=== PATIENT | male | born 1965 | race Caucasian/White ===

== ENCOUNTER 2020-09-06 19:24 | Emergency (ER) | payer OTHER ==
[2020-09-06 20:22] LABS: Absolute Lymphocytes (CBC) 0.4 K/uL (0.7-4.9); Basophils % 0.2 % (0-1.3); Lymphocytes % 2.4 % (15.3-44.8); MPV 7.7 fL (7.6-11.3); RBC Red Blood Cell Count 4.34 M/uL (4.33-5.43)
[2020-09-06 20:23] LABS: Protime INR 1.35
[2020-09-06 20:29] LABS: ALT/SGPT 79 U/L (12-78); AST/SGOT 37 U/L (15-37); Albumin 2.7 g/dL (3.4-5.0); Alkaline Phosphatase 126 U/L (45-117); Amylase 20 U/L (25-115); BUN Blood Urea Nitrogen 24 mg/dL (7-18); Bicarbonate 27 mmol/L (21-32); Bilirubin Direct 1.1 mg/dL (0-0.2); Bilirubin Total 1.7 mg/dL (0.2-1.0); Creatine Phosphokinase 19 U/L (39-308); Glucose Level 281 mg/dL (74-106); Lipase 159 U/L (73-393); Potassium 4.4 mmol/L (3.5-5.1); Protein, Total 7.2 g/dL (6.4-8.2); Sodium Level 128 mmol/L (136-145); Troponin (Emerg Dept Use Only) < 0.02 ng/mL (0.0-0.045)
[2020-09-06] MEDS ORDERED: ONDANSETRON 4 MG/2 ML VIAL ONE (20:35)
[2020-09-06] MEDS ORDERED: ACETAMINOPHEN 500 MG TAB ONE (20:35)
[2020-09-06] MEDS ORDERED: NA CHLORIDE 0.9% 2,000 ML ONE (20:36)
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
[2020-09-06 21:48] LABS: Blood Morphology Comment NOT SEEN (NOT SEEN); Platelet Estimate ADEQ
--- NOTE | 2020-09-06 23:38 | ER ---
Nurse's Notes [facility] Name: Damir Morgan Age: 55 yrs Sex: Male : 1965 Arrival Date: 09/06/2020 Time: 19:26 Bed 6 Private MD: Diagnosis: Fever, unspecified;Nausea and vomiting;Dehydration;Viral infection, unspecified Presentation: 09/06 19:26 Chief complaint: EMS states: patient has complaining of N/V/D, fever, and generalized jm8 weakness x 3 days. Worse today. BG 420. 92% room air with EMS. Coronavirus screen: Client denies travel out of the [place] in the last 14 days. diarrhea, fatigue, fever, muscle pain, nausea, shaking with chills, vomiting. Ebola Screen: Patient negative for fever greater than or equal to 101.5 degrees Fahrenheit, and additional compatible Ebola Virus Disease symptoms Patient denies exposure to infectious person. Patient denies travel to an Ebola-affected area in the 21 days before illness onset. Initial Sepsis Screen: Does the patient meet any 2 criteria? Temp <36.0*C (96.8*F)) or > 38.3*C (100.9*F). HR > 90 bpm. Yes Does the patient have a suspected source of infection? No. Patient's initial sepsis screen is negative. Risk Assessment: Do you want to hurt yourself or someone else? Patient reports no desire to harm self or others. Onset of symptoms was September 03, 2020. 19:26 Method Of Arrival: [facility]: [facility] 19:26 Acuity: MORELIA [address] [facility] 19:37 Care prior to arrival: Medication(s) given: zofran 4 mg, lactated ringers IV initiated. jm8 18 GA, in the right antecubital area. Historical: - Allergies: 19:36 No Known Allergies; jm8 - Home Meds: 19:36 insulin regular human injection sliding scale injection [Active]; jm8 - PMHx: 19:36 Diabetes - IDDM; jm8 - PSHx: 19:36 None; jm8 - Immunization history:: Adult Immunizations up to date, Client reports having NOT received the Covid vaccine. - Social history:: Smoking status: Patient denies any tobacco usage or history of. Screenin:36 Abuse screen: Denies threats or abuse. Denies injuries from another. Nutritional jm8 screening: No deficits noted. Tuberculosis screening: No symptoms or risk factors identified. Fall Risk None identified. Assessment: 20:23 General: Appears in no apparent distress. comfortable, Behavior is calm, cooperative, jm8 appropriate for age. Pain: Complains of pain in abdomen Pain currently is 5 out of 10 on a pain scale. Quality of pain is described as crampy, Pain began 2-3 days ago. Also complains of nausea. Neuro: No deficits noted. Level of Consciousness is awake, alert, obeys commands, Oriented to person, place, time. Cardiovascular: No deficits noted. Respiratory: No deficits noted. GI: Abdomen is round Pt is actively vomiting Bowel sounds present X 4 quads. Abd is soft and non tender Reports lower abdominal pain, upper abdominal pain, diarrhea, nausea, vomiting, generalized weakness. : No deficits noted. No signs and/or symptoms were reported regarding the genitourinary system. EENT: No deficits noted. No signs and/or symptoms were reported regarding the EENT system. Derm: No deficits noted. No signs and/or symptoms reported regarding the dermatologic system. Musculoskeletal: No deficits noted. No signs and/or symptoms reported regarding the musculoskeletal system. 09/07 11:17 Reassessment: Lab called with preliminary blood culture report. Gram + cocci in ss clusters. Dr. Ramon notified and states to call patient back to ER. Attempted to call number on file. No answer. Vital Signs: 09/06 19:26 BP 135 / 79; Pulse 109; Resp 20; Temp 100.7; Pulse Ox 96% on R/A; Weight 77.11 kg; jm8 Height 5 ft. 6 in. (167.64 cm); Pain 5/10; 21:46 BP 134 / 72; Pulse 103; Resp 16; Pulse Ox 95% on R/A; jm8 22:34 BP 111 / 68; Pulse 100; Resp 16; Temp 98.9; Pulse Ox 95% on R/A; jm8 23:15 BP 103 / 56; Pulse 98; Resp 16; Pulse Ox 95% on R/A; jm8 19:26 Body Mass Index 27.44 (77.11 kg, 167.64 cm) [facility] ED Course: 19:26 Patient arrived in ED. 8 19:29 Gilbert Hagen MD is Attending Physician. tw4 19:32 Triage completed. jm8 20:02 Chest Single View XRAY In Process Unspecified. EDMS 20:24 Arm band placed on right wrist. jm8 20:25 Patient has correct armband on for positive identification. Bed in low position. Call carey light in reach. Side rails up X2. Adult w/ patient. 20:26 Inserted saline lock: 18 gauge in right antecubital area, using aseptic technique. jm8 23:46 No provider procedures requiring assistance completed. IV discontinued, intact, jm8 bleeding controlled. Administered Medications: 20:21 Drug: Tylenol 1000 mg Route: PO; jm8 21:45 Follow up: Response: No adverse reaction jm8 20:22 Drug: NS 0.9% (30 ml/kg) 30 ml/kg Route: IV; Rate: bolus; Site: right antecubital; jm8 20:22 Drug: Zofran (Ondansetron) 4 mg Route: IVP; Site: left antecubital; jm8 21:45 Follow up: Response: No adverse reaction [facility] Outcome: 23:37 Discharge ordered by . tw4 23:46 Discharged to home ambulatory. jm8 23:46 Condition: good 23:46 Discharge instructions given to patient, family, Instructed on discharge instructions, follow up and referral plans. medication usage, Demonstrated understanding of instructions, follow-up care, medications, Prescriptions given X 1. 23:47 Patient left the ED. jm8 Signatures: Dispatcher [employer] EDFL Maria Ines Cornelius, SONDRA AMARO Gilbert Hagen MD MD [facility] Jeremy Geiger RN RN jm
--- NOTE | 2020-09-06 23:39 | EDPHYS ---
Physician Documentation [facility] Name: Damir Morgan Age: 55 yrs Sex: Male : 1965 Arrival Date: 09/06/2020 Time: 19:26 Bed 6 Private MD: ED Physician Gilbert Hagen HPI: 09/07 05:00 This 55 yrs old Male presents to ER via EMS with complaints of nausea tw4 vomiting. 05:00 The patient presents to the emergency department with nausea, vomiting. Onset: The tw4 symptoms/episode began/occurred today. Possible causes: unknown. Severity of symptoms: At their worst the symptoms were moderate in the emergency department the symptoms are unchanged. The patient has not experienced similar symptoms in the past. Historical: - Allergies: 09/06 19:36 No Known Allergies; jm8 - Home Meds: 19:36 insulin regular human injection sliding scale injection [Active]; 8 - PMHx: 19:36 Diabetes - IDDM; 8 - PSHx: 19:36 None; jm8 - Immunization history:: Adult Immunizations up to date, Client reports having NOT received the Covid vaccine. - Social history:: Smoking status: Patient denies any tobacco usage or history of. ROS: 09/07 05:00 Constitutional: Negative for fever, chills, and weight loss, Eyes: Negative for injury, tw4 pain, redness, and discharge, Neck: Negative for injury, pain, and swelling, Respiratory: Negative for shortness of breath, cough, wheezing, and pleuritic chest pain, Back: Negative for injury and pain, MS/Extremity: Negative for injury and deformity, Skin: Negative for injury, rash, and discoloration, Neuro: Negative for headache, weakness, numbness, tingling, and seizure. Abdomen/GI: Positive for abdominal pain, nausea and vomiting, nausea, vomiting, Negative for nausea, vomiting, and diarrhea, diarrhea, constipation, abdominal cramps, abdominal distension, anorexia, dysphagia, black/tarry stool, rectal pain, rectal bleeding, bowel incontinence. Exam: 05:00 Constitutional: This is a well developed, well nourished patient who is awake, alert, tw4 and in no acute distress. Head/Face: Normocephalic, atraumatic. Chest/axilla: Normal chest wall appearance and motion. Nontender with no deformity. No lesions are appreciated. Cardiovascular: Regular rate and rhythm with a normal S1 and S2. No gallops, murmurs, or rubs. Normal PMI, no JVD. No pulse deficits. Respiratory: Lungs have equal breath sounds bilaterally, clear to auscultation and percussion. No rales, rhonchi or wheezes noted. No increased work of breathing, no retractions or nasal flaring. Abdomen/GI: Soft, non-tender, with normal bowel sounds. No distension or tympany. No guarding or rebound. No evidence of tenderness throughout. Back: No spinal tenderness. No costovertebral tenderness. Full range of motion. MS/ Extremity: Pulses equal, no cyanosis. Neurovascular intact. Full, normal range of motion. Neuro: Awake and alert, GCS 15, oriented to person, place, time, and situation. Cranial nerves II-XII grossly intact. Motor strength 5/5 in all extremities. Sensory grossly intact. Cerebellar exam normal. Normal gait. Vital Signs: 09/06 19:26 BP 135 / 79; Pulse 109; Resp 20; Temp 100.7; Pulse Ox 96% on R/A; Weight 77.11 kg; 8 Height 5 ft. 6 in. (167.64 cm); Pain 5/10; 21:46 BP 134 / 72; Pulse 103; Resp 16; Pulse Ox 95% on R/A; 8 22:34 BP 111 / 68; Pulse 100; Resp 16; Temp 98.9; Pulse Ox 95% on R/A; 8 23:15 BP 103 / 56; Pulse 98; Resp 16; Pulse Ox 95% on R/A; 8 19:26 Body Mass Index 27.44 (77.11 kg, 167.64 cm) [facility] MDM: 19:49 Patient medically screened. tw4 09/07 05:00 Differential diagnosis: Nonspecific abd pain, gastritis. Data reviewed: vital signs, tw4 nurses notes. Data interpreted: Pulse oximetry: Interpretation: normal. Counseling: I had a detailed discussion with the patient and/or guardian regarding: the historical points, exam findings, and any diagnostic results supporting the discharge/admit diagnosis. Special discussion: I discussed with the patient/guardian in detail that at this point there is no indication for admission to the hospital. It is understood, however, that if the symptoms persist or worsen the patient needs to return immediately for re-evaluation. 09/06 19:30 Order name: Amylase, Serum 09/06 19:30 Order name: Basic Metabolic Panel 09/06 19:30 Order name: Blood Culture Adult (2) 09/06 19:30 Order name: CBC with Diff; Complete Time: 22:57 09/06 22:57 Interpretation: Normal except: WBC 15.50; HCT 39.0; LYM% 2.4; KEITH% 91.1; NEUT A 14.1; tw4 LYMA 0.4. 09/06 19:30 Order name: CPK; Complete Time: 21:35 09/06 22:58 Interpretation: Normal except: CPK 19. 09/06 19:30 Order name: LFT's; Complete Time: 21:35 09/06 22:58 Interpretation: Normal except: ALT 79; ALK 126; BILIT 1.7; BILID 1.1; ALB 2.7; GLOB 4.5.09/06 19:30 Order name: Lipase; Complete Time: 21:35 09/06 19:30 Order name: Procalcitonin; Complete Time: 21:35 09/06 22:58 Interpretation: Abnormal: Procalcitonin 6.54. 09/06 19:30 Order name: Protime (+inr); Complete Time: 21:35 09/06 22:58 Interpretation: Normal except: PT 15.6. 09/06 19:30 Order name: Ptt, Activated; Complete Time: 21:35 09/06 19:30 Order name: Troponin (emerg Dept Use Only); Complete Time: 21:35 09/06 19:30 Order name: Acetone, Serum; Complete Time: 21:35 09/06 19:30 Order name: Chest Single View XRAY; Complete Time: 21:16 09/06 19:30 Order name: Accucheck; Complete Time: 20:49 09/06 19:30 Order name: Cardiac monitoring; Complete Time: 19:56 09/06 19:30 Order name: EKG - Nurse/Tech; Complete Time: 20:49 09/06 19:30 Order name: IV Saline Lock - Large Bore; Complete Time: 19:56 tw4 09/06 19:30 Order name: Labs collected and sent; Complete Time: 19:56 tw4 09/06 19:30 Order name: O2 Per Protocol; Complete Time: 19:56 tw4 09/06 19:30 Order name: O2 Sat Monitoring; Complete Time: 19:56 tw4 09/06 19:30 Order name: Amylase; Complete Time: 21:35 EDMS 09/06 19:31 Order name: Basic Metabolic Panel; Complete Time: 21:35 EDMS 09/06 22:58 Interpretation: Normal except: NA 128; CL 92; GLUC 281; BUN 24; GFR 89. tw4 09/06 20:23 Order name: Manual Differential; Complete Time: 22:57 EDMS 09/06 22:57 Interpretation: Normal except: BANDS [F] 17; LYM 1; META 1. 4 09/06 22:55 Order name: SARS-COV-2 RT PCR; Complete Time: 23:18 EDMS EC:09 Rate is 111 beats/min. Rhythm is regular. QRS [place] is Normal. FL interval is normal. tw4 QRS interval is normal. QT interval is normal. No Q waves. T waves are Normal. No ST changes noted. Clinical impression: Sinus tachycardia. Interpreted by me. Reviewed by me. Administered Medications: 09/06 20:21 Drug: Tylenol 1000 mg Route: PO; jm8 21:45 Follow up: Response: No adverse reaction [facility] 20:22 Drug: NS 0.9% (30 ml/kg) 30 ml/kg Route: IV; Rate: bolus; Site: right antecubital; [facility] 20:22 Drug: Zofran (Ondansetron) 4 mg Route: IVP; Site: left antecubital; 8 21:45 Follow up: Response: No adverse reaction [facility] Disposition: 09/06/20 23:37 Discharged to Home. Impression: Fever, unspecified, Nausea and vomiting, Dehydration, Viral infection, unspecified. - Condition is Stable. - Discharge Instructions: Dehydration, Adult, Fever, Adult, Nausea and Vomiting, Adult, Hyponatremia, [id number]. - Prescriptions for Zofran 4 mg Oral Tablet - take 1 tablet by ORAL route every 12 hours As needed; 20 tablet. - Medication Reconciliation Form, Thank You Letter, Antibiotic Education, Prescription Opioid Use form. - Follow up: Private Physician; When: Upon discharge from the Emergency Department; Reason: Recheck today's complaints, Continuance of care, Re-evaluation by your physician. - Problem is new. - Symptoms have improved. Signatures: Dispatcher [employer] [facility] Gilbert Hagen MD MD tw4 Jeremy Geiger RN RN jm8 Corrections: (The following items were deleted from the chart) 22:04 21:37 CORONAVIRUS+MR.LAB.BRZ ordered. [facility] 23:47 23:37 09/06/2020 23:37 Discharged to Home. Impression: Fever, unspecified; Nausea and jm8 vomiting; Dehydration; Viral infection, unspecified. Condition is Stable. Forms are Medication Reconciliation Form, Thank You Letter, Antibiotic Education, Prescription Opioid Use. Follow up: Private Physician; When: Upon discharge from the Emergency Department; Reason: Recheck today's complaints, Continuance of care, Re-evaluation by your physician. Problem is new. Symptoms have improved. tw4
[2020-09-06 23:59] VITALS: O2SAT 95
[2020-09-07 00:01] VITALS: TEMP 98.9
[2020-09-07 00:02] VITALS: BP 103/56
--- NOTE | 2020-09-07 10:27 | EKG ---
Test Date: 2020-09-06 Test Time: 20:43:44 Information Technology Architect: AVA MEASUREMENT RESULTS: Intervals: Rate: 111 OH: 140 QRSD: 82 QT: 330 QTc: 448 [place]: P: 70 OH: 140 QRS: 46 T: 55 INTERPRETIVE STATEMENTS: Sinus tachycardia Otherwise normal ECG No previous ECG available for comparison Electronically Signed On 09-07-20 10:25:38 CDT by Chun Lopez
== END 2020-09-06 23:47 | disposition home or self-care (01) ==
LOC: ER 19:24
DX: B34.9 Viral infection, unspecified (principal); E86.0 Dehydration; R11.2 Nausea with vomiting, unspecified; Z20.822 Contact with and (suspected) exposure to COVID-19; E11.9 Type 2 diabetes mellitus without complications; Z79.4 Long term (current) use of insulin
CPT/HCPCS: 93005; 87040 ×2; 85025; 80048; 36415; 82010; 82150; 82550; 87205 ×4; 85610; 80076; 85730; 84484; 83690; 84145; 71045; U0003; J2405; 99284; J7030

== ENCOUNTER 2020-09-11 14:40 | Inpatient (IN) | payer BC, SELFPAY ==
[2020-09-11] MEDS ORDERED: ACETAMINOPHEN 500 MG TAB PO PRN (14:51)
[2020-09-11] MEDS ORDERED: VANCOMYCIN/NS 1 gm 1 GM/250 ML BAG IVPB SCH (15:00)
--- OUTSIDE RECORDS SUMMARY | 2020-09-11 16:08 | XMS REPORT | Continuity of Care Document ---
:1965 Author Organization [facility] t Address [address] [place] [address] Care Team Providers Name Role Phone Rafael ROBLES Attending Clinician Doctor Unassigned, Name Attending Clinician Unavailable Problems This patient has no known problems. Allergies, Adverse Reactions, Alerts This patient has no known allergies or adverse reactions. Social History Social Habit Start Date Stop Date Quantity Comments Source Sex Assigned At [facility] Medications Ordered Filled Start Stop Current Ordering Indication Dosage Frequency Signature Comments Components Source Medication Medication Date Date Medication? Clinician (SIG) Name Name insulin 2018-0 Yes Hyperglycem 35 units Andrew 70/30 NPH - 4-05 ia BID Health REGULAR 100 00:00: subcutaneo unit/mL 00 us. injection INSULIN 0 Yes Hyperglycem Q.5D Use to H arris SYRINGE 1mL 4-05 ia inject Health 30GX5/16" 00:00: medication syringe-nee 00 2 times dle daily. Use a new syringe each time. Procedures This patient has no known procedures. Plan of Care Planned Activity Planned Date Details Comments Source Future Scheduled Test 2020-12-24 00:00:00 IMM Influenza [facility] Seasonal Dec to May (>/= 19 yrs) [code = IMM Influenza Seasonal Dec to May (>/= 19 yrs)] Future Scheduled Test 2013-08-27 00:00:00 Screening for [facility] malignant neoplasm of colon (procedure) [code = 342997231] Future Scheduled Test 1975 00:00:00 COVID-19 Vaccine (1) [facility] [code = COVID-19 Vaccine (1)] Encounters Start End Encounter Admission Attending Care Care Encounter Source Date/Time Date/Time Type Type Clinicians Facility Department ID 2019-10-06 2019-10-06 Office [facility] [id number] 15:19:25 16:01:42 Visit Luis Johns [id number] Robert [id number] Corina [id number] [address] 2019-10-06 2019-10-06 Orders Doctor NOHEMY [id number] 00:00:00 00:00:00 Only Unassigned, [place] [id number] [place] [facility] [id number] 2018-06-29 2018-06-29 Emergency [facility] [id number] Andrae 07:30:53 07:30:53 Health 2018-06-28 2018-06-28 Emergency [facility] [id number] Andrae 01:52:46 01:52:46 Health Results This patient has no known results.
[2020-09-11] MEDS ORDERED: VANCOMYCIN 1.5 GM in NA CHLORIDE 0.9% 500 ML IVPB SCH (17:00)
[2020-09-11] MEDS: MORPHINE 4 MG/ML SYR IV PRN ×2 (17:08→21:37)
[2020-09-11] MEDS: Levofloxacin 750mg IV 750 MG/150 ML BAG IV SCH (17:09)
[2020-09-11] MEDS: NA CHLORIDE 0.9% 1,000 ML IV SCH (17:09)
[2020-09-11] MEDS ORDERED: D50W 25 GM/50 ML SYRINGE IV PRN (22:17)
[2020-09-11] MEDS ORDERED: GLUCAGON 1 MG/VIAL IM PRN (22:17)
[2020-09-11] MEDS: INSULIN -REGULAR HUMAN 50 UNIT/0.5 ML ML SQ SCH (22:39)
[2020-09-11 23:09] LABS: Absolute Lymphocytes (CBC) 1.5 K/uL (0.7-4.9); Basophils % 0.3 % (0-1.3); Hematocrit 32.6 % (39.6-49.0); Lymphocytes % 8.7 % (15.3-44.8); RBC Red Blood Cell Count 3.58 M/uL (4.33-5.43)
[2020-09-11 23:23] LABS: Protime INR 1.37
[2020-09-11 23:28] LABS: ALT/SGPT 64 U/L (12-78); AST/SGOT 67 U/L (15-37); Albumin 1.9 g/dL (3.4-5.0); Alkaline Phosphatase 307 U/L (45-117); BUN Blood Urea Nitrogen 19 mg/dL (7-18); Bicarbonate 23 mmol/L (21-32); Glucose Level 203 mg/dL (74-106); Potassium 3.8 mmol/L (3.5-5.1); Protein, Total 5.4 g/dL (6.4-8.2); Sodium Level 129 mmol/L (136-145)
[2020-09-12] LABS: Platelet Estimate ADEQ
[2020-09-12 00:01] LABS: Blood Morphology Comment NOT SEEN (NOT SEEN)
[2020-09-12] MEDS: VANCOMYCIN 1.5 GM in NA CHLORIDE 0.9% 500 ML IVPB SCH ×3 (00:55→21:35)
[2020-09-12] MEDS ORDERED: VANCOMYCIN 1 GM/VIAL ONE (00:59)
[2020-09-12] MEDS ORDERED: NA CHLORIDE 0.9% 500 ML ONE (01:00)
[2020-09-12] MEDS: MORPHINE 4 MG/ML SYR IV PRN ×5 (01:02→23:26)
[2020-09-12 04:37] LABS: Absolute Lymphocytes (CBC) 1.5 K/uL (0.7-4.9); Basophils % 0.5 % (0-1.3); Hematocrit 31.6 % (39.6-49.0); Lymphocytes % 8.5 % (15.3-44.8); MPV 7.8 fL (7.6-11.3); RBC Red Blood Cell Count 3.48 M/uL (4.33-5.43)
[2020-09-12 04:54] LABS: Protime INR 1.4
[2020-09-12 05:04] LABS: ALT/SGPT 63 U/L (12-78); AST/SGOT 64 U/L (15-37); Albumin 1.9 g/dL (3.4-5.0); Alkaline Phosphatase 299 U/L (45-117); BUN Blood Urea Nitrogen 19 mg/dL (7-18); Bicarbonate 23 mmol/L (21-32); Bilirubin Direct 1.3 mg/dL (0-0.2); Bilirubin Total 1.8 mg/dL (0.2-1.0); Glucose Level 173 mg/dL (74-106); Potassium 3.8 mmol/L (3.5-5.1); Protein, Total 5.7 g/dL (6.4-8.2); Sodium Level 129 mmol/L (136-145)
[2020-09-12] MEDS: NA CHLORIDE 0.9% 1,000 ML IV SCH ×2 (05:16→17:33)
[2020-09-12] MEDS: INSULIN -REGULAR HUMAN 50 UNIT/0.5 ML ML SQ SCH ×4 (07:30→21:00)
[2020-09-12] MEDS ORDERED: SUCCINYLCHOLINE 20 MG/ML (10 ML) IV ONE (09:25)
[2020-09-12] MEDS ORDERED: FENTANYL CITR 100 MCG/2 ML ONE (09:27)
[2020-09-12] MEDS ORDERED: propofoL 200 MG/20 ML VIAL IV ONE (09:27)
[2020-09-12] MEDS ORDERED: MIDAZOLAM HCL 2 MG/2 ML INJ ONE (09:27)
[2020-09-12] MEDS ORDERED: GENTAMICIN SULF 80 MG/2ML INJ ONE (09:30)
[2020-09-12] MEDS ORDERED: LIDOCAINE 1% W/EPI 1:100,000 MDV 20 ML VIAL ONE (09:30)
[2020-09-12] MEDS ORDERED: CEFAZOLIN SODIUM 1 GM/VIAL ONE (09:30)
[2020-09-12] MEDS ORDERED: NS 0.9% VIAL 10 ML ONE (09:31)
[2020-09-12] MEDS ORDERED: BACITRACIN 50000 UNIT VIAL ONE (09:31)
[2020-09-12] MEDS ORDERED: NA CHLORIDE 0.9% 1,000 ML ONE (09:49)
[2020-09-12] MEDS: SODIUM HYPOCHLORITE 0.5% 473 ML ONE (10:10)
--- NOTE | 2020-09-12 10:12 | P.OP ---
Preoperative diagnosis: Necrotizing infection of RIGHT great toe Postoperative diagnosis: Necrotizing infection of RIGHT great toe Primary procedure: Wide local debridement of RIGHT great toe and midfoot Secondary procedure: Pulse lavage with antibiotic solution Anesthesia: GETA + Local Estimated blood loss: <5cc Specimen: cultures and debridement tissue sent Findings: necrosis extended to tendons, to proximal midfoot Complications: None Transferred to: Recovery Room Condition: Good
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
--- NOTE | 2020-09-12 12:11 | OP ---
Date of Procedure: 09/12/2020 Surgeon: Ugo Keating MD, Brief History Of Present Illness: The patient is a 55-year-old male diabetes and hypertension, who was recently admitted to [facility] with an infection of the right great toe after ant bites. He had been transferred to [facility] for surgical debridement and had worsening signs of progressive soft tissue infection by imaging. I had a preoperative discussion with the patient regarding the risks, benefits, and options from a surgical standpoint. The patient reiterated the desire to save the toe at almost all costs short of a devascularized toe. He asked if I could get the infection reduced significantly enough to give his toe a chance of survival. As such, I explained that there was always a chance for toe and limb loss in an operation of this type with necrotizing soft tissue infection and I could not in good conscience leave an infection behind if I thought that this was a possibility. As such, I brought the patient to the operating room with the intention of debridement without amputation, but possible amputation at this time and indicated procedures. Preoperative Diagnosis: Necrotizing soft tissue infection of the right great toe extending to the mid foot. Postoperative Diagnosis: Necrotizing soft tissue infection of the right great toe extending to the mid foot. Procedures: 1. Wide local debridement of right great toe necrotic tissue extending to the mid foot along the first ray. 2. Pulse lavage with antibiotic solution. Anesthesia: General endotracheal plus local with 0.25% Marcaine. Estimated Blood Loss: Less than 5 mL. Specimen: Cultures and debridement tissue sent. Findings: 1. Necrosis on the dorsal aspect of the right great toe extending up to the mid foot along the first ray with some medial extension toward the second ray, but not involving obviously. 2. This was a necrotizing soft tissue infection extending up to the tendons of the hallux. It appeared to not involve the extensor hallucis longus or brevis based on the extension; however, all soft tissues superficial to this were obviously involved. Complications: None immediate. Disposition: The patient was transferred to recovery room in good condition. Procedure In Detail: After informed consent was obtained, the patient was brought to the operating room, prepped and draped in the usual sterile fashion after adequate anesthesia achieved. I injected the area with additional lidocaine for additional regional block. I then incised the area over the great toe extending progressively up to the mid foot to expose all necrotic tissue. At this point, necrotic tissue was sharply debrided using a combination of electrocautery as well as sharp dissection with a combination of a 15 blade knife as well as tenotomy scissors. When all necrotic skin was debrided, I extended the dissection down to the necrotic tissue along the dorsal aspect of the hallux. As I continued, I encountered additional soft, weepy, grayish fluid up to almost the mid foot. I got good bleeding viable tissue up to approximately the mid foot along the first ray and debrided all this tissue down to the tendons over the first hallux involving what appeared to be the extensor hallucis longus and brevis. At this point, I circumferentially removed all necrotic tissue. I performed a pulse lavage with triple antibiotic solution until all tissues were copiously cleansed and all necrotic tissue was debrided. At this point, the blood supply appeared to be adequate and there was no additional extension of the infection; however, the tendon was exposed at this point and there was not a joint capsule involvement grossly. After the pulse lavage was completed, the areas of tissues appeared quite clean at this point. I made a counter incision on the dorsal aspect of the foot just medial to the first ray for approximately 1 cm to ensure there was no plantar aspect extension of the infection and there was none at this point. The area was irrigated. Hemostasis was achieved easily with electrocautery and the wound was packed with quarter-inch iodoform packing on the plantar aspect. The dorsal wound was then dried at this point, inspected for proper hemostasis. No additional hemostatic maneuvers required and the wound was then packed with Dakin-soaked Kerlix and a sterile dressing and an Herman bandage placed on top. The patient tolerated the procedure well without evidence of complication and transferred to PACU in good condition. All counts were correct at the end of the case. TK/MODL Voice ID: [id number] Report ID: [id number] ALEN
[2020-09-12] MEDS: ONDANSETRON 4 MG/2 ML VIAL IV PRN (12:14)
--- NOTE | 2020-09-12 16:53 | RAD REPORT ---
EXAM DESCRIPTION: US - Lower Extremity Arterial Bilat - 09/12/2020 4:28 pm CLINICAL HISTORY: PAD; necrotic toe COMPARISON: None. TECHNIQUE: Doppler evaluation of the bilateral lower extremity arterial tree performed. Waveforms we re obtained along the length of each lower extremity. Visual inspection of the lower extremity arteri al tree performed. FINDINGS: No occlusion or focal flow restricting lesion identifiable. The bilateral common femoral, superficial femoral and popliteal arteries show triphasic waveform pattern. Triphasic waveform patter n seen in the left dorsalis pedis artery. Monophasic waveform patterns were seen in the left posterio r tibial artery and the right posterior tibial and dorsalis pedis arteries. No significant velocity v alue differentials. IMPRESSION: Below-knee mild to moderate peripheral arterial disease is evident, right greater than l eft. No occlusion or flow restricting lesion.
[2020-09-12] MEDS: Levofloxacin 750mg IV 750 MG/150 ML BAG IV SCH (17:31)
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
[2020-09-12] MEDS: ALBUMIN HUMAN 25% 50 ML IV SCH (19:29)
[2020-09-12] MEDS: FUROSEMIDE 20 MG/ 2ML VIAL IV SCH (19:30)
--- NOTE | 2020-09-12 22:29 | RAD REPORT ---
EXAM DESCRIPTION: CT - Chest Abdomen Pelvis W Cont - 09/12/2020 6:43 am CLINICAL HISTORY: The patient is 55 years old and is Male; Left flank mass TECHNIQUE: Axial computed tomography images of the chest, abdomen and pelvis with intravenous contra st. Sagittal and coronal reformatted images were created and reviewed. This CT exam was performed using one or more of the following dose reduction techniques: automated exposure control, adjustme nt of the mA and/or kV according to patient size, and/or use of iterative reconstruction technique. COMPARISON: No relevant prior studies available. FINDINGS: CHEST: Lungs: 3.1 x 3.0 cm mass in the left lower lobe. Pleural space: Small bilateral pleural effusions, right greater than left. No pneumothorax. Heart: Unremarkable. No cardiomegaly. No significant pericardial effusion. ABDOMEN: Liver: Unremarkable. No mass. Gallbladder and bile ducts: Unremarkable. No calcified stones. No ductal dilation. Pancreas: Unremarkable. No ductal dilation. No mass. Spleen: Unremarkable. No splenomegaly. Adrenals: Unremarkable. No mass. Kidneys and ureters: Unremarkable. No hydronephrosis. No solid mass. Stomach and bowel: Unremarkable. No obstruction. No mucosal thickening. PELVIS: Appendix: No findings to suggest acute appendicitis. Bladder: Unremarkable. No mass. Reproductive: Unremarkable as visualized. CHEST, ABDOMEN and PELVIS: Intraperitoneal space: Unremarkable. No significant fluid collection. No free air. Retroperitoneal space: Diffuse edema within the mesenteric and retroperitoneal fat. Bones/joints: Unremarkable. No acute fracture. No dislocation. Soft tissues: Diffuse subcutaneous soft tissue edema. Scattered punctate metallic densities within the subcutaneous soft tissues of the right hemit horax and adjacent to the right posterior liver. Gynecomastia. Subcutaneous emphysema in the left anterolateral abdominal wall which may be related to injec tion. Vasculature: Unremarkable. No aortic aneurysm. Lymph nodes: Unremarkable. No enlarged lymph nodes. IMPRESSION: 1. 3.1 x 3.0 cm mass in the left lower lobe. Finding is concerning for malignancy. 2. Small bilateral pleural effusions, right greater than left. 3. Diffuse subcutaneous soft tissue edema. 4. Diffuse edema within the mesenteric and retroperitoneal fat. 5. Scattered punctate metallic densities within the subcutaneous soft tissues of the right hemithor ax and adjacent to the right posterior liver. 6. Gynecomastia. Electronically signed by: Hector Pierre MD 09/11/2020 11:48 PM CDT Due to temporary technical issues with the PACS/Fluency reporting system, reports are being signed by the in house radiologists without review as a courtesy to insure prompt reporting. The interpreting radiologist is fully responsible for the content of the report.
[2020-09-13] MEDS: ALBUMIN HUMAN 25% 50 ML IV SCH ×3 (00:31→17:47)
[2020-09-13] MEDS: FUROSEMIDE 20 MG/ 2ML VIAL IV SCH (00:31)
[2020-09-13 04:36] LABS: Absolute Lymphocytes (CBC) 1.4 K/uL (0.7-4.9); Basophils % 0.2 % (0-1.3); Hematocrit 28.8 % (39.6-49.0); Lymphocytes % 8.4 % (15.3-44.8); MPV 7.8 fL (7.6-11.3); RBC Red Blood Cell Count 3.13 M/uL (4.33-5.43)
[2020-09-13] MEDS: MORPHINE 4 MG/ML SYR IV PRN ×3 (04:46→20:29)
[2020-09-13 05:02] LABS: Potassium 3.9 mmol/L (3.5-5.1)
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
[2020-09-13] MEDS: NA CHLORIDE 0.9% 1,000 ML IV SCH (07:00)
[2020-09-13] MEDS ORDERED: NA CHLORIDE 0.9% 1,000 ML IV SCH (07:03)
[2020-09-13] MEDS: VANCOMYCIN 1.5 GM in NA CHLORIDE 0.9% 500 ML IVPB SCH ×2 (08:32→20:29)
[2020-09-13] MEDS: INSULIN -REGULAR HUMAN 50 UNIT/0.5 ML ML SQ SCH ×4 (08:32→20:29)
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
[2020-09-13] MEDS ORDERED: TRAMADOL HCL 50 MG TAB PO PRN (09:07)
[2020-09-13] MEDS ORDERED: dexAMETHasone 10 MG/ML VIAL ONE (10:38)
[2020-09-13] MEDS ORDERED: LIDOCAINE 1% MPF 5 ML VIAL ONE (10:38)
[2020-09-13] MEDS ORDERED: BUPIVACAINE 0.25% PF 10 ML VIAL ONE (10:40)
[2020-09-13] MEDS ORDERED: FENTANYL CITR 100 MCG/2 ML ONE (10:42)
[2020-09-13] MEDS ORDERED: MIDAZOLAM HCL 2 MG/2 ML INJ ONE (10:42)
[2020-09-13] MEDS ORDERED: propofoL 200 MG/20 ML VIAL IV ONE (10:42)
[2020-09-13] MEDS ORDERED: LIDOCAINE 2% MPF 5 ML VIAL ONE (10:49)
[2020-09-13] MEDS: SODIUM HYPOCHLORITE 0.5% 473 ML ONE (11:57)
--- NOTE | 2020-09-13 12:01 | P.OP ---
Preoperative diagnosis: Necrotizing soft tissue infection with osteomyelitis of RIGHT Foot 1st Ray Postoperative diagnosis: Necrotizing soft tissue infection with osteomyelitis of RIGHT Foot 1st Ray Primary procedure: Ray amptuation of RIGHT hallux -transmetatarsal Secondary procedure: Debridement of necrotizing soft tissue infection Anesthesia: MAC + Regional Block Estimated blood loss: ~10cc Specimen: Debrdiement tissue Findings: Additional necrotizing infection of 1st Ray and surrounding soft tissues, Complications: None Transferred to: Recovery Room Condition: Good
[2020-09-13] MEDS ORDERED: SODIUM HYPOCHLORITE 0.5% 473 ML ONE (12:14)
--- NOTE | 2020-09-13 14:37 | RAD REPORT ---
EXAM DESCRIPTION: RAD - Chest Single View - 09/13/2020 2:27 pm CLINICAL HISTORY: follow up pleural effusion Chest pain. COMPARISON: <Comparisons> FINDINGS: Portable technique limits examination quality. The lungs are grossly clear. Small opacity is seen in left base with a small left pleural effusion. T he heart is normal in size. Numerous metallic foreign bodies project over the right aspect of the est[address] st.
--- NOTE | 2020-09-13 14:59 | RAD REPORT ---
EXAM DESCRIPTION: US - Liver Only - 09/13/2020 2:23 pm CLINICAL HISTORY: elevated liver function with Hyperbilirubin COMPARISON: No comparisons FINDINGS: The liver demonstrates diffuse fatty infiltration with heterogenous parenchymal pattern. . No focal liver lesion or intrahepatic biliary dilatation.No evidence of portal vein thrombosis. Mild ascites and a small right pleural effusion noted. IMPRESSION: Heterogenous parenchymal pattern with mild fatty infiltration suggest underlying hepatic inflammation or chronic infection.
[2020-09-13] MEDS: HYDROCODONE/APAP 7.5/325 MG TAB PO PRN ×2 (17:47→23:21)
[2020-09-13] MEDS: ONDANSETRON 4 MG/2 ML VIAL IV PRN (17:47)
[2020-09-13] MEDS: Levofloxacin 750mg IV 750 MG/150 ML BAG IV SCH (17:47)
[2020-09-13] MEDS: HEPARIN 5000 UNIT/ML 1 ML VIAL SQ SCH (20:29)
--- NOTE | 2020-09-13 22:58 | OP ---
Date of Procedure: 09/13/2020 Surgeon: Ugo Keating MD, Brief Hpi: The patient is a 55-year-old male who presented to the hospital with a necrotizing soft t issue infection of the right foot beginning at the hallux/great toe. He was taken to the operating r oom yesterday for a debridement of necrotizing soft tissue infection of the right foot. The patient has requested sparing of the great toe, which was attempted with the understanding that if it did not show significant improvement by today, we will proceed with an amputation. As such upon examination of the patient this morning, I found that there was additional infection and cellulitic changes and necrosis to the hallux as well as to some of the more proximal tissues beyond the surgical margin. A s such, I discussed amputation of the great toe, possibly up through the ray and second toe possibly being involved and all necrotic tissue must be debrided at that point. I have explained the risks, b enefits, and alternatives of the above stated plan and the patient agreed to proceed as indicated. Preoperative Diagnosis: Necrotizing soft tissue infection with osteomyelitis of the right foot, firs t ray. Postoperative Diagnosis: Necrotizing soft tissue infection with osteomyelitis of the right foot, fir st ray. Procedures Performed: 1.Ray amputation of the right hallux up to mid/proximal metatarsal. 2.Debridement of necrotizing soft tissue infection including muscle, bone, fascia, tendons and assoc iated soft tissue. Anesthesia: MAC plus regional block. Estimated Blood Loss: 10 cc. Specimen: Debridement of tissue and right great toe. Findings: Additional necrotizing soft tissue infection of the first ray and surrounding tissues. Th e osteomyelitic changes went to the metatarsal head and to the neck of the metatarsal and the distal aspect necessitating a transmetatarsal resection. Complications: None. Disposition: The patient was transferred to recovery room in good condition. Procedure In Detail: After informed consent was obtained as described above, the patient was prepped and draped in the usual sterile fashion after adequate anesthesia was achieved. I used a 15 blade d own to subcutaneous tissues to extend the incision along the first ray on the right foot. I then pro ceeded to debride all necrotic tissue circumferentially around down to expose the metatarsophalangeal joint. At this point, there appeared to be additional soft tissue necrotizing infection, which was new and advanced from prior surgical intervention. As such, a transmetatarsal amputation was decided upon at this point. I mobilized the periosteum using a periosteal elevator to expose the mid to pro ximal metatarsal. I exposed this tissue and found that ultimately I got to a spot where the bone was uninvolved by infection. I debrided all soft tissue circumferentially around including muscle, fasc ia, tendons including extensor and flexor compartments. I then removed the ray using a Gigli saw thr ough the transmetatarsal portion. I then beveled the edges of the remaining metatarsal circumferenti ally around. I removed all soft tissue and additional necrotic abscesses were encountered, which wer e small and multiloculated running along the fascia. I got back down to good bleeding tissue. Vesse ls were controlled with interrupted 3-0 Vicryl stick tie and/or 3-0 nylon free ties. After all necro tic tissue was debrided, the area was inspected and irrigated copiously. Hemostasis was additionally achieved with electrocautery on the exposed muscular planes. No additional infection was left behin d at this point and all tissues were pink and viable. I irrigated the area copiously multiple times until completely clear and packed the wound then with Dakin's half-strength soaked Kerlix and a steri le dressing was placed over top as well as an Herman wrap and elevation. The patient tolerated the proc edure well without evidence of complication and transferred to PACU in good condition. All counts were correct at the end of the case. ADRIA/RANDALL Voice ID: [id number] Report ID: [id number]
[2020-09-14] MEDS: MORPHINE 4 MG/ML SYR IV PRN ×5 (00:28→20:47)
[2020-09-14] MEDS: ALBUMIN HUMAN 25% 50 ML IV SCH ×2 (00:28→09:00)
[2020-09-14 04:47] LABS: Absolute Lymphocytes (CBC) 0.6 K/uL (0.7-4.9); Basophils % 0.1 % (0-1.3); Hematocrit 29.4 % (39.6-49.0); Lymphocytes % 4.1 % (15.3-44.8); MPV 8.2 fL (7.6-11.3); RBC Red Blood Cell Count 3.13 M/uL (4.33-5.43)
[2020-09-14 05:27] LABS: ALT/SGPT 56 U/L (12-78); AST/SGOT 56 U/L (15-37); Albumin 2.1 g/dL (3.4-5.0); Alkaline Phosphatase 389 U/L (45-117); BUN Blood Urea Nitrogen 35 mg/dL (7-18); Bicarbonate 21 mmol/L (21-32); Bilirubin Total 1.3 mg/dL (0.2-1.0); Ferritin 747.6 ng/mL (26-388); Magnesium 2.2 mg/dL (1.8-2.4); Potassium 4.5 mmol/L (3.5-5.1); Protein, Total 5.6 g/dL (6.4-8.2); Sodium Level 125 mmol/L (136-145); Transferrin 76 mg/dL (200-360)
[2020-09-14 05:29] LABS: Glucose Level 531 mg/dL (74-106)
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
[2020-09-14] MEDS ORDERED: FUROSEMIDE 20 MG/ 2ML VIAL IV ONE (07:30)
[2020-09-14] MEDS ORDERED: NA CHLORIDE 0.9% 1,000 ML IV SCH ×2 (08:00)
[2020-09-14] MEDS ORDERED: INSULIN GLARGINE 100 UNITS/ML SQ SCH ×2 (09:00→21:00)
[2020-09-14] MEDS: HEPARIN 5000 UNIT/ML 1 ML VIAL SQ SCH ×2 (09:00→20:59)
[2020-09-14] MEDS ORDERED: VANCOMYCIN 1.5 GM in NA CHLORIDE 0.9% 500 ML IVPB SCH ×2 (09:00→21:00)
[2020-09-14] MEDS: INSULIN -REGULAR HUMAN 50 UNIT/0.5 ML ML SQ SCH ×5 (09:01→20:49)
[2020-09-14 09:10] VITALS: O2SAT 99
--- NOTE | 2020-09-14 10:02 | RAD REPORT ---
EXAM DESCRIPTION: US - Scrotum Testicles - 09/14/2020 9:40 am CLINICAL HISTORY: Testicular pain COMPARISON: None FINDINGS: Right testicle measures 3.2 x 2.1 x 2.2 centimeters. Echotexture is homogeneous. Normal bl ood flow Left testicle measures 3.2 x 2.2 x 2.1 centimeters. Echotexture is homogeneous. Normal blood flow The right epididymis normal in size and echotexture. Normal blood flow is seen. Suboptimal evaluation of the left epididymis Scrotal skin thickening IMPRESSION: Scrotal skin thickening can be secondary to cellulitis or edema
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
[2020-09-14] MEDS ORDERED: GLUCAGON 1 MG/VIAL IM PRN (13:41)
[2020-09-14] MEDS: FUROSEMIDE 40 MG/4 ML VIAL IV SCH ×3 (13:45→20:47)
[2020-09-14 14:21] LABS: CKMB Creatine Kinase MB 1.9 ng/mL (1.0-3.6); Phosphorus 3.1 mg/dL (2.5-4.9); Uric Acid 5.5 mg/dL (3.5-7.2)
[2020-09-14] MEDS ORDERED: D50W 25 GM/50 ML VIAL IV PRN (14:29)
[2020-09-14 14:45] LABS: Urine Protein/Creatinine Ratio 0.62 ratio (<0.15)
[2020-09-14 14:52] LABS: Urine Appearance CLEAR (Clear); Urine Bilirubin NEGATIVE (Negative); Urine Blood NEGATIVE (Negative); Urine Color YELLOW (Yellow); Urine Glucose 3+ (Negative); Urine Protein NEGATIVE (Negative)
[2020-09-14] MEDS ORDERED: CALCIUM GLUC 10% INJ 4.65 MEQ in NA CHLORIDE 0.9% 100 ML IV ONE (15:00)
[2020-09-14 15:14] LABS: Urine Bacteria NONE SEEN /HPF (NONE SEEN); Urine RBC NONE SEEN /HPF (NONE SEEN)
--- NOTE | 2020-09-14 16:46 | RAD REPORT ---
EXAM DESCRIPTION: US - Renal Ultrasound-Complete - 09/14/2020 4:21 pm CLINICAL HISTORY: JUILET, assess for pyelonephritis, hydronephrosis COMPARISON: Chest Abdomen Pelvis W Cont dated 09/11/2020 FINDINGS: The right kidney measures 12.1 x 5.7 x 5.8 cm. The left kidney measures 11.3 x 5.5 x 4.8 cm. Cortical thickness is normal for both kidneys. Cortical echogenicity is normal to slightly increa sed. The increase in echogenicity may be body habitus affects. The echogenicity is uniform throughout both kidneys and symmetric in each kidney. No abscess or focal parenchymal abnormality seen. No hydronephrosis or solid mass lesion identifiable. Partially filled urinary bladder shows no suspicious finding. IMPRESSION: No hydronephrosis or suspicious renal mass. Renal parenchymal echogenicity is within range of normal. Parenchymal echogenicity is homogeneous.
[2020-09-14] MEDS: Levofloxacin 750mg IV 750 MG/150 ML BAG IV SCH (17:00)
[2020-09-14] MEDS ORDERED: VANCOMYCIN 1.5 GM in Dextrose 5%-Water 500 ML IVPB SCH (21:00)
[2020-09-14] MEDS ORDERED: TAMSULOSIN 0.4 MG SR CAP PO SCH (21:00)
[2020-09-15 04:22] LABS: Absolute Lymphocytes (CBC) 1.3 K/uL (0.7-4.9); Basophils % 0.2 % (0-1.3); Lymphocytes % 7.9 % (15.3-44.8); RBC Red Blood Cell Count 3.39 M/uL (4.33-5.43)
[2020-09-15 04:37] LABS: Albumin 2.3 g/dL (3.4-5.0); Bilirubin Total 1.1 mg/dL (0.2-1.0); Magnesium 2.2 mg/dL (1.8-2.4); Potassium 3.9 mmol/L (3.5-5.1); Protein, Total 5.9 g/dL (6.4-8.2)
[2020-09-15 04:56] VITALS: TEMP 97.5
[2020-09-15 05:06] LABS: Blood Morphology Comment NOT SEEN (NOT SEEN); Platelet Estimate ADEQ
[2020-09-15] MEDS: MORPHINE 4 MG/ML SYR IV PRN ×2 (05:22→09:44)
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
[2020-09-15 06:09] VITALS: BMI 34.1
[2020-09-15 06:24] LABS: Hepatitis C Virus RNA (PCR)log 7.33 log IU/mL
[2020-09-15] MEDS: INSULIN -REGULAR HUMAN 50 UNIT/0.5 ML ML SQ SCH ×2 (07:30→11:37)
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
[2020-09-15] MEDS: FUROSEMIDE 40 MG/4 ML VIAL IV SCH (08:36)
[2020-09-15] MEDS: HEPARIN 5000 UNIT/ML 1 ML VIAL SQ SCH (08:38)
[2020-09-15] MEDS: VANCOMYCIN 1.5 GM in Dextrose 5%-Water 500 ML IVPB SCH ×2 (08:42→09:00)
[2020-09-15] MEDS ORDERED: INSULIN GLARGINE 100 UNITS/ML SQ SCH (09:00)
[2020-09-15] MEDS ORDERED: COLLAGENASE 30 GM OINTMENT TOP SCH (09:00)
--- NOTE | 2020-09-15 09:08 | RAD REPORT ---
EXAM DESCRIPTION: RAD - Chest Single View - 09/15/2020 8:43 am CLINICAL HISTORY: follow up Pleural effusions/possible CHF Chest pain. COMPARISON: Chest Single View dated 09/13/2020; Chest Single View dated 09/06/2020; CHEST SINGLE VIEW dated 05/15/2008 FINDINGS: Portable technique limits examination quality. Small opacity in the left lung base with a trace left pleural effusion appears unchanged. The lungs a re otherwise clear. No new or progressive cardiopulmonary abnormality. The heart is normal in size.
--- NOTE | 2020-09-15 09:30 | RAD REPORT ---
EXAM DESCRIPTION: US - Extrem Venous W Compress Mohan - 09/15/2020 9:10 am CLINICAL HISTORY: rule out bilateral lower extremity DVT Bilateral leg edema and swelling. COMPARISON: No comparisons TECHNIQUE: Real-time sonographic interrogation of the left and right lower extremity deep venous sys tems was performed. FINDINGS: Normal compressibility, flow augmentation, phasic flow and spontaneous flow is identified in both the left and right lower extremity deep venous systems. IMPRESSION: No sonographic evidence of left or right lower extremity deep venous thrombosis.
[2020-09-15] MEDS ORDERED: DRISDOL (VITAMIN D=ERGOCALCIFEROL) 50000 UNIT CAP PO SCH (10:00)
--- NOTE | 2020-09-15 10:58 | PN ---
Date of Progress Note: 09/15/2020 Subjective: The patient was admitted with osteomyelitis. The patient had anasarca, leg swelling of both lower extremities. The patient had acute kidney injury, multifactorial, secondary to contrast-i nduced nephropathy, over diuresis, and vanc toxicity. Ultrasound did not show any hydronephrosis. O bstructive uropathy has been ruled out. Physical Examination: Vital Signs: When I saw the patient; blood pressure 137/71, pulse of 83, afebrile. The patient had good urine output of 3 L, negative of 1100. Weight melendrez, still gaining weight. Chest: Clear to auscultation. Heart: S1, S2. Regular. Abdomen: Soft, nontender. Scrotal edema. Extremities: +3 edema. Dressing on the right foot. Laboratory Data: WBC 15.9, H and H 10.4/31. Sodium 132, potassium 3.9, bicarb 24, BUN 41, creatinin e 1.6, GFR of 44, calcium 7.5, magnesium 2.2, albumin 2.3, corrected calcium is 9. Serum protein jordon ctrophoresis is still pending. Vitamin D of 13. PTH of 77. PC ratio 0.6. Serology still pending. Vanc trough today down to 17, yesterday was up to 20. Current Medications: The patient on include; 1.Levaquin 750 daily. 2.Vancomycin 1.5 g daily has been decreased from b.i.d. 3.Flomax. 4.Tylenol. 5.Lasix 80 q.i.d. 6.Insulin. 7.Morphine. Assessment And Plan: 1.Acute kidney injury, multifactorial, secondary to contrast-induced nephropathy, over diuresis, and vanc toxicity. Currently creatinine plateaued. I am going to go ahead and hold on the vancomycin f or today. We will repeat trough tomorrow and we will follow up. I am going to decrease Lasix to b.i .d. and we will monitor the patient. We will place the patient on fluid restriction. 2.Anasarca secondary to renal failure. I am going to go ahead and send for TSH. We will decrease L asix given the presence of acute kidney injury and we will monitor. 3.Vitamin D deficiency. Start supplement. 4.Osteomyelitis with acute kidney injury, elevation on vanc trough. We will repeat vanc level. We will hold on the vancomycin for today. 5.Diabetes as by primary. SHAYLEE/MODL Voice ID: [id number] Report ID: [id number]
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
[2020-09-15] MEDS: HYDROCODONE/APAP 7.5/325 MG TAB PO PRN (15:59)
[2020-09-15 17:14] VITALS: BP 125/74
[2020-09-15 19:22] LABS: HBsAG Nonreactive (Nonreactive)
[2020-09-15] MEDS ORDERED: FUROSEMIDE 40 MG/4 ML VIAL IV SCH (21:00)
--- NOTE | 2020-09-15 23:26 | CON ---
Date of Consultation: 09/14/2020 Reason For Consultation: Peripheral arterial disease. History Of Present Illness: Mr. Morgan is a 55-year-old who came in from [facility] with osteo myelitis of the right toe. General Surgery was consulted, and had an arterial Doppler showing diffus e disease [id number], but no focal stenosis. The patient has a history of hypertension and diabe ale. He takes insulin and lisinopril at home. No previous cardiac history. The patient was initial ly cleared for surgery. Dr. Keating on 09/12/2020 performed wide local debridement of the right grea t toe, admitted for pulse lavage with antibiotic solution. The patient has done well postoperatively . Echocardiogram which was done basically was normal without any wall motion abnormalities. The pat ient had more treatment on 09/13/2020. Again, the patient did well postoperatively. He was seen by Nephrology for acute kidney injury with some volume overload. Examination from a cardiac standpoint according to animal nutrition consultant, Dr. Whiting, is rather . As stated earlier, his echocardiogram was u nremarkable. Nephrology recommended a bladder scan, ultrasound, starting Flomax, avoiding non-steroi dals. Had some anasarca and had some small bilateral pleural effusions. A 3-cm left lower lung mass possibly related anemia, hyponatremia and hypocalcemia as well as some acidosis, abnormal liver function tests. From our standpoint, cardiac melendrez, his echo is normal. His EKG is unremarkab le, has very high risk factor profile, where he is cleared from our standpoint to go home whenever it is okay with the consultants and Dr. Whiting. I will make arrangements for him to have an outpatient f ollowup in our office as well as a stress test. He will have a Lexiscan. NB/MODL Voice ID: [id number] Report ID: [id number]
--- NOTE | 2020-09-16 08:35 | ECHO ---
HEIGHT: 5 ft 6 in WEIGHT: 211 lb 9.6 oz DATE OF STUDY: 09/15/[address]: Simone Arreaga DO 2-DIMENSIONAL: YES M.MODE: YES DOPPLER: YES COLOR FLOW: YES TDS: NO PORTABLE: NO DEFINITY: NO BUBBLE STUDY: NO DIAGNOSIS: HYPERTENSION CARDIAC HISTORY: CATHERIZATION: SURGERY: PROSTHETIC VALVE: PACEMAKER: MEASUREMENTS (cm) DIASTOLIC (NORMALS) SYSTOLIC (NORMALS) IVSd 1.1 (0.6-1.2) LA Diam 3.5 (1.9-4.0) LVEF 62% LVIDd 4.8 (3.5-5.7) LVIDs 3.2 (2.0-3.5) %FS 33% LVPWd 1.1 (0.6-1.2) Ao Diam 2.9 (2.0-3.7) 2 DIMENSIONAL ASSESSMENT: RIGHT ATRIUM: NORMAL LEFT ATRIUM: NORMAL RIGHT VENTRICLE: NORMAL LEFT VENTRICLE: NORMAL TRICUSPID VALVE: NORMAL MITRAL VALVE: NORMAL PULMONIC VALVE: NORMAL AORTIC VALVE: NORMAL PERICARDIAL EFFUSION: NONE AORTIC ROOT: NORMAL LEFT VENTRICULAR WALL MOTION: NORMAL DOPPLER/COLOR FLOW: MILD TRICUSPID REGURGITATION. COMMENTS: MILD TRICUSPID REGURGITATION. NORMAL RIGHT VENTRICULAR SYSTOLIC PRESSURE. NORMAL LEFT VENTRICULAR SIZE AND FUNCTION. TECHNOLOGIST: Bahman CARRINGTON
[2020-09-17 11:27] LABS: Hep C Virus RNA (PCR)log ND
== END 2020-09-15 16:03 | DRG 616 ==
LOC: 2ND 16:05
PROVIDERS: ADMIT Hospitalist; ATTEND Family Medicine
PROC: 0JBQ0ZZ Excision of Right Foot Subcutaneous Tissue and Fascia, Open Approach (ICD-10-PCS; 2020-09-12)
PROC: 0JDQ0ZZ Extraction of Right Foot Subcutaneous Tissue and Fascia, Open Approach (ICD-10-PCS; 2020-09-12)
PROC: 0JBQ0ZZ Excision of Right Foot Subcutaneous Tissue and Fascia, Open Approach (ICD-10-PCS; 2020-09-13)
PROC: 0Y6P0Z0 Detachment at Right 1st Toe, Complete, Open Approach (ICD-10-PCS; principal; 2020-09-13 10:00)
DX: E11.69 Type 2 diabetes mellitus with other specified complication (principal); J96.00 Acute respiratory failure, unspecified whether with hypoxia or hypercapnia; E11.52 Type 2 diabetes mellitus with diabetic peripheral angiopathy with gangrene; I96 Gangrene, not elsewhere classified; M86.171 Other acute osteomyelitis, right ankle and foot; E87.1 Hypo-osmolality and hyponatremia; E87.2 Acidosis; I50.30 Unspecified diastolic (congestive) heart failure; I11.0 Hypertensive heart disease with heart failure; E11.65 Type 2 diabetes mellitus with hyperglycemia; E11.40 Type 2 diabetes mellitus with diabetic neuropathy, unspecified; N62 Hypertrophy of breast; N17.9 Acute kidney failure, unspecified; D63.8 Anemia in other chronic diseases classified elsewhere; K76.0 Fatty (change of) liver, not elsewhere classified; E83.51 Hypocalcemia; E87.70 Fluid overload, unspecified; N50.89 Other specified disorders of the male genital organs; N40.1 Benign prostatic hyperplasia with lower urinary tract symptoms; B19.20 Unspecified viral hepatitis C without hepatic coma; B95.61 Methicillin susceptible Staphylococcus aureus infection as the cause of diseases classified elsewhere; R33.8 Other retention of urine; R79.89 Other specified abnormal findings of blood chemistry; R91.8 Other nonspecific abnormal finding of lung field; T50.8X5A Adverse effect of diagnostic agents, initial encounter; S90.461A Insect bite (nonvenomous), right great toe, initial encounter; Z79.4 Long term (current) use of insulin; Z79.899 Other long term (current) drug therapy; Z20.822 Contact with and (suspected) exposure to COVID-19
CPT/HCPCS: 36415; 71045; 71260; 74177; 76705; 76770; 76870; 80048; 80053; 80061; 80074; 80076; 80202; 81001; 82306; 82550; 82553; 82570; 82607; 82728; 82947; 83036; 83540; 83605; 83735; 83880; 83935; 83970; 84100; 84145; 84156; 84165; 84300; 84466; 84484; 84550; 85025; 85610; 85730; 86334; 86704; 86706; 87070; 87075; 87077; 87186; 87205; 87389; 87520; 87522; 88304; 88305; 88311; 93306; 93925; 93970; 94010; J0330; J0610; J0690; J1100; J1580; J1644; J1815; J1940; J2250; J2405; J2704; J3010; J3370; J3590; J7030; J7040; J7060; P9047; Q9967

== ENCOUNTER 2023-10-03 16:54 | Emergency (ER) | payer SELFPAY ==
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
--- NOTE | 2023-10-03 18:01 | ER ---
Nurse's Notes [facility] Name: Damir Morgan Age: 58 yrs Sex: Male : 1965 Arrival Date: 10/03/2023 Time: 16:54 Bed 20 Private MD: Diagnosis: Abrasion of right hand Presentation: 10/02 17:53 Chief complaint: Patient states: Pt states right hand lacerated while working on an tl4 engine some time last week. Pt states pain and swelling is getting worse. Pt states he has bugs in the wound and under his fingernails. Pt states he is picking out "hundreds" per day. Coronavirus screen: At this time, the client does not indicate any symptoms associated with coronavirus-19. Ebola Screen: No symptoms or risks identified at this time. Initial Sepsis Screen: Does the patient meet any 2 criteria? No. Patient's initial sepsis screen is negative. Does the patient have a suspected source of infection? No. Patient's initial sepsis screen is negative. Risk Assessment: Do you want to hurt yourself or someone else? Patient reports no desire to harm self or others. Onset of symptoms is unknown. 17:53 Method Of Arrival: Ambulatory tl4 17:53 Acuity: MORELIA 3 tl4 Triage Assessment: 18:01 General: Appears in no apparent distress. Behavior is calm, cooperative. Pain: tl4 Complains of pain in right hand and left hand. EENT: No signs and/or symptoms were reported regarding the EENT system. Neuro: Level of Consciousness is awake, alert, obeys commands, Oriented to person, place, time, situation. Cardiovascular: Capillary refill < 3 seconds Patient's skin is warm and dry. Respiratory: Airway is patent Respiratory effort is even, unlabored, Respiratory pattern is regular, symmetrical. GI: No signs and/or symptoms were reported involving the gastrointestinal system. : No signs and/or symptoms were reported regarding the genitourinary system. Derm: Wound noted right hand and left hand. Musculoskeletal: No signs and/or symptoms reported regarding the musculoskeletal system. Historical: - Allergies: 18:00 No Known Allergies; tl4 - PMHx: 18:00 Diabetes - IDDM; tl4 - Immunization history:: Last tetanus immunization: unknown. - Infectious Disease History:: Denies. - Social history:: Smoking status: Patient denies any tobacco usage or history of. Screenin:35 [facility] ED Fall Risk Assessment (Adult) History of falling in the last 3 months, nj1 including since admission No falls in past 3 months (0 pts) Confusion or Disorientation No (0 pts) Intoxicated or Sedated No (0 pts) Impaired Gait No (0 pts) Mobility Assist Device Used No (0 pt) Altered Elimination No (0 pt) Score/Fall Risk Level 0 - 2 = Low Risk Oriented to surroundings, Maintained a safe environment, Hourly rounding (assess needs \\T\\ fall precautionary measures) done. Abuse screen: Denies threats or abuse. Denies injuries from another. Nutritional screening: No deficits noted. Tuberculosis screening: No symptoms or risk factors identified. Assessment: 18:20 General: Appears in no apparent distress. comfortable, Behavior is calm, cooperative, nj1 appropriate for age. 18:20 Pain: Denies pain. Neuro: Level of Consciousness is awake, alert, obeys commands, nj1 Oriented to person, place, situation. Cardiovascular: Patient's skin is warm and dry. Respiratory: Airway is patent Respiratory effort is even, unlabored. Derm: Skin has lesions on Scattered abrasions noted to right hand. Non active bleeding noted. Parent/caregiver reports the patient having worms in lesions. No worms noticed upon assessment. Vital Signs: 17:53 BP 152 / 79; Pulse 89; Resp 16; Temp 97.1(TE); Pulse Ox 100% ; Weight 74.84 kg; Height tl4 5 ft. 7 in. ; Pain 5/10; 18:47 BP 144 / 95; Pulse 87; Resp 18; Pulse Ox 99% on R/A; nj1 17:53 Body Mass Index 25.84 (74.84 kg, 170.18 cm) tl4 17:53 Pain Scale: Adult tl4 ED Course: 17:19 Patient arrived in ED. im 17:27 Artur Nieves NP is PHCP. pm1 17:28 Jimmie Ramon MD is Attending Physician. pm1 18:00 Triage completed. tl4 18:02 Arm band placed on left wrist. tl4 18:09 Maria Elena Griffin, SONDRA is Primary Nurse. nj1 18:20 Patient has correct armband on for positive identification. Bed in low position. Call nj1 light in reach. Provided Education on: call light, fall precautions. 18:20 Wound care: to abrasion, located on right hand was cleaned with soap and water, dressed nj with Non adherent pad, kerlix and saúl wrap.. 18:47 No provider procedures requiring assistance completed. Patient did not have IV access nj during this emergency room visit. Administered Medications: 18:25 Drug: Boostrix Tdap IM 0.5 ml IM once; as a single dose Route: IM; Site: left deltoid; [facility] 18:51 Follow up: Response: (VIS) Vaccine information sheet provided today. Questions and/or [facility] concerns addressed. VIS edition date: Oct 29, 2020.; No adverse reaction 18:33 Not Given (Product Out of Stock): tetanus-diphtheria toxoidadult 0.5 ml IM once; [facility] Provide Vaccine Information Statement (VIS). Medication: 18:51 Vaccine Information Statement (VIS) provided today. Questions and/or concerns [facility] addressed. VIS edition date: October 29, 2020. Outcome: 18:01 Discharge ordered by . pm1 18:50 Discharged to home ambulatory, [facility] 18:50 Condition: stable 18:50 Discharge instructions given to patient, Instructed on discharge instructions, follow up and referral plans. medication usage, wound care, Demonstrated understanding of instructions, follow-up care, medications, wound care, 18:51 Patient left the ED. [facility] Signatures: Artur Nieves, [employer] DISPATCHER SUPERVISOR pm1 Maria Elena Griffin, RN RN nj1 Aileen Nguyen Toni RN RN tl4
[2023-10-03] MEDS ORDERED: TDAP (DIPHTH,PERTUSS(ACELL),TET VAC) 0.5 ML VIAL IMVAC ONE (18:20)
[2023-10-03 23:56] VITALS: BP 144/95; TEMP 97.1; O2SAT 99
== END 2023-10-03 18:51 | disposition home or self-care (01) ==
LOC: ER 16:54
DX: S60.511A Abrasion of right hand, initial encounter (principal)
CPT/HCPCS: 96372; 99284

== ENCOUNTER 2024-07-19 04:23 | Inpatient (IN) | payer OTHER, SELFPAY ==
[2024-07-19 05:15] LABS: PT Prothrombin Time 11.2 SECONDS (10-13.0); Protime INR 0.98
[2024-07-19 05:25] LABS: Absolute Basophils 0.1 K/uL (0-0.5); Absolute Eosinophils 0.5 K/uL (0-0.5); Absolute Lymphocytes (CBC) 2.1 K/uL (0.7-4.9); Absolute Monocytes 0.8 K/uL (0.1-1.3); Absolute Neutrophil 4.6 K/uL (1.8-8.0); Basophils % 0.7 % (0-1.3); Eosinophils % 6.1 % (0-4.4); Hematocrit 29.9 % (39.6-49.0); Hemoglobin 10.7 g/dL (13.6-17.9); MCH 30.6 pg (27.0-35.0); MCHC 35.8 g/dL (32.0-36.0); MCV 85.3 fL (80-100); Monocytes % 10.1 % (3.3-12.3); Neutrophils % 57.1 % (41.7-73.7); Platelets 279 thou/uL (152-406); Red Cell Distribution Width 13.9 % (12.1-15.2)
[2024-07-19 05:29] LABS: ALT/SGPT 81 U/L (16-61); AST/SGOT 129 U/L (15-37); Albumin 1.3 g/dL (3.4-5.0); Albumin/Globulin Ratio 0.3 (1.1-1.8); Alkaline Phosphatase 343 U/L (45-117); Anion Gap 8.3 mEq/L (5.0-15.0); BUN Blood Urea Nitrogen 29 mg/dL (7-18); Bicarbonate 24 mEq/L (21-32); Bilirubin Total 0.3 mg/dL (0.2-1.0); Globulin 3.8 g/dL (2.3-3.5); Glomerular Filtration Rate 32 ml/min (=/>90); Glucose Level 245 mg/dL (74-106); NT PRO-BNP 1176 pg/mL (<125); Potassium 4.3 mEq/L (3.5-5.1); Protein, Total 5.1 g/dL (6.4-8.2); Sodium Level 136 mEq/L (136-145); Troponin High Sensitivity 19.5 pg/mL (<58.9)
[2024-07-19 05:46] LABS: Bilirubin Direct < 0.2 mg/dL (0-0.2); Bilirubin Indirect, Calculated 0.1 mg/dL (0.2-0.8)
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
[2024-07-19] MEDS ORDERED: HYDRALAZINE HCL 20 MG/ML VIAL ONE (06:23)
[2024-07-19] MEDS ORDERED: CALCIUM GLUCONATE 1 GM IVPB 2 GM/100 ML BAG IV ONE (06:24)
[2024-07-19] MEDS ORDERED: FAMOTIDINE 20 MG/2 ML VIAL IV ONE (06:51)
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
--- NOTE | 2024-07-19 09:28 | RAD REPORT ---
EXAM: Scrotum Testicles HISTORY: 58 years Male SWELLING COMPARISON: 09/12/2020 TECHNIQUE: Multiplanar grayscale and color Doppler images were obtained in a testicular/scrotal ultra sound. Spectral analysis of the Doppler waveforms of the testicles were performed. FINDINGS: Right testicle: Normal in echogenicity. No focal mass. Normal internal flow. The right testicle marcin ures 2.6 x 1.9 x 2.5 cm with volume of 6.4 mL. Left testicle: Normal in echogenicity. No focal mass. Normal internal flow. The left testicle measur es 2.7 x 2.1 x 2.2 cm with volume of 6.5 mL. Right epididymis. No epididymal cyst. Normal internal flow. Left epididymis. Not well visualized. Small bilateral hydroceles. No varicocele. IMPRESSION: Nonspecific scrotal edema. No fluid collections identified. Bilateral testicular blood flow.
--- NOTE | 2024-07-19 09:32 | RAD REPORT ---
EXAMINATION: Abdomen Pelvis Wo Contrast CLINICAL INDICATION: Male, 58 years old.SWELLING TECHNIQUE: CT abdomen and pelvis was performed, without IV contrast, as per department protocol. Axia l, sagittal and coronal reconstructions were obtained. One or more of the following dose reduction techniques were used: Automated exposure control, adjustment of the mA and/or kV according to the pat ient size, and/or iterative reconstruction. Unless otherwise specified, incidental findings do not require dedicated imaging follow-up. [id number]. IV CONTRAST: Not administered. COMPARISON: 09/11/2020 FINDINGS: The lack of intravenous contrast limits the sensitivity of this exam for evaluation of solid visceral organs, vascular structures, and retroperitoneum. LOWER CHEST: No acute process identified.No significant pericardial effusion. Moderate circumferentia l thickening of the distal esophagus which could reflect esophagitis. Endoscopy could better evaluate. UPPER GI: No significant abnormality. LIVER: No significant focal abnormality. GALLBLADDER/BILE DUCTS: Cholelithiasis without CT evidence of acute cholecystitis.? PANCREAS: Atrophy but no acute findings. SPLEEN: Unremarkable. ADRENALS: No adrenal masses. KIDNEYS AND URETERS: No hydronephrosis.Limited evaluation for renal lesions in the absence of IV cont rast.Nonobstructing renal calculi.No ureteral calculi. ABDOMINAL AORTA AND OTHER VESSELS: Normal caliber aorta and IVC. PERITONEUM: Mild ascites. LYMPH NODES: Symmetric reactive size inguinal lymph nodes. ABDOMINAL WALL: Body wall edema. SMALL BOWEL/COLON: Small bowel has normal course and caliber. No colonic wall thickening or pericolon ic inflammatory changes.Normal appendix. URINARY BLADDER: Underdistended but grossly unremarkable. REPRODUCTIVE ORGANS: No pathologic process. MUSCULOSKELETAL: Multilevel degenerative changes in the spine. No acute fracture. ADDITIONAL FINDINGS: None. IMPRESSION: No acute findings within the abdomen or pelvis. Anasarca.
[2024-07-19] MEDS ORDERED: ONDANSETRON 4 MG/2 ML VIAL IV PRN (10:22)
[2024-07-19] MEDS ORDERED: MORPHINE 2 MG/ML SYR IV PRN (10:33)
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
[2024-07-19] MEDS ORDERED: GLUCAGON 1 MG/VIAL IM PRN (11:00)
[2024-07-19] MEDS ORDERED: D10W 125 ML IV PRN (11:00)
[2024-07-19] MEDS: INSULIN REGULAR (HUMAN) 100 UNIT/ML SQ SCH (11:30)
[2024-07-19] MEDS ORDERED: INSULIN REGULAR (HUMAN) 100 UNIT/ML ONE (11:57)
[2024-07-19] MEDS: ALBUMIN HUMAN 25% 200 ML IV ONE (15:42)
[2024-07-19] MEDS: FUROSEMIDE 40 MG/4 ML VIAL IV SCH (15:42)
[2024-07-19] MEDS: HEPARIN 5000 UNIT/ML 1 ML VIAL SQ SCH (15:42)
[2024-07-19] MEDS: ACETAMINOPHEN 500 MG TAB PO PRN (21:36)
[2024-07-20] MEDS: METOPROLOL TARTRATE 5 MG/5 ML INJ IV PRN (06:00)
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
[2024-07-20 07:53] LABS: Absolute Basophils 0.1 K/uL (0-0.5); Absolute Eosinophils 0.4 K/uL (0-0.5); Absolute Lymphocytes (CBC) 2.1 K/uL (0.7-4.9); Absolute Monocytes 0.6 K/uL (0.1-1.3); Absolute Neutrophil 3.4 K/uL (1.8-8.0); Basophils % 1.3 % (0-1.3); Eosinophils % 6.7 % (0-4.4); Hemoglobin 9.6 g/dL (13.6-17.9); Lymphocytes % 31.4 % (15.3-44.8); MCH 30.5 pg (27.0-35.0); MCHC 35.5 g/dL (32.0-36.0); MCV 85.8 fL (80-100); Monocytes % 9.5 % (3.3-12.3); Neutrophils % 51.1 % (41.7-73.7); Platelets 215 thou/uL (152-406); RBC Red Blood Cell Count 3.14 M/uL (4.33-5.43)
[2024-07-20 08:39] LABS: Albumin 1.4 g/dL (3.4-5.0); Albumin/Globulin Ratio 0.4 (1.1-1.8); Anion Gap 8.1 mEq/L (5.0-15.0); Bilirubin Total 0.4 mg/dL (0.2-1.0); Globulin 3.2 g/dL (2.3-3.5); Phosphorus 3.7 mg/dL (2.5-4.9); Potassium 4.1 mEq/L (3.5-5.1); Prealbumin 10.4 mg/dL (20-40); Protein, Total 4.6 g/dL (6.4-8.2)
[2024-07-20 08:51] LABS: Thyroid Stimulating Hormone 16.5 uIU/mL (0.358-3.740)
[2024-07-21 05:24] LABS: Absolute Basophils 0.1 K/uL (0-0.5); Absolute Eosinophils 0.3 K/uL (0-0.5); Absolute Lymphocytes (CBC) 1.5 K/uL (0.7-4.9); Absolute Monocytes 0.3 K/uL (0.1-1.3); Absolute Neutrophil 2.9 K/uL (1.8-8.0); Basophils % 1.1 % (0-1.3); Eosinophils % 6.7 % (0-4.4); Hematocrit 44.3 % (39.6-49.0); Hemoglobin 14.9 g/dL (13.6-17.9); Lymphocytes % 28.8 % (15.3-44.8); MCH 29.2 pg (27.0-35.0); MCHC 33.7 g/dL (32.0-36.0); MCV 86.8 fL (80-100); MPV 7.6 fL (7.6-11.3); Monocytes % 6.1 % (3.3-12.3); Neutrophils % 57.3 % (41.7-73.7); Nucleated Red Blood Cells % 0.3 % (0-0); Platelets 148 thou/uL (152-406); Red Cell Distribution Width 14.3 % (12.1-15.2)
[2024-07-21 05:37] LABS: Albumin 1.4 g/dL (3.4-5.0); Albumin/Globulin Ratio 0.4 (1.1-1.8); Anion Gap 7.3 mEq/L (5.0-15.0); Bilirubin Total 0.3 mg/dL (0.2-1.0); Globulin 3.5 g/dL (2.3-3.5); Magnesium 1.9 mg/dL (1.6-2.4); Phosphorus 3.3 mg/dL (2.5-4.9); Potassium 4.3 mEq/L (3.5-5.1); Protein, Total 4.9 g/dL (6.4-8.2)
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
--- NOTE | 2024-07-21 12:13 | EKG ---
Test Date: 2024-07-19 Test Time: 04:54:32 Contact Lens Fitter: MEASUREMENT RESULTS: Intervals: Rate: 89 OH: 148 QRSD: 78 QT: 370 QTc: 450 Gordon: P: 53 OH: 148 QRS: -2 T: 53 INTERPRETIVE STATEMENTS: Normal sinus rhythm Low voltage QRS Cannot rule out Anterior infarct, age undetermined Abnormal ECG Compared to ECG 09/06/2020 20:43:44 Low QRS voltage now present Myocardial infarct finding now present Sinus tachycardia no longer present Electronically Signed On 07-21-24 12:08:45 CDT by Parvez Rivera
--- NOTE | 2024-07-21 13:24 | ECHO ---
HEIGHT: 5 ft 7 in WEIGHT: 179 lb 9.6 oz DATE OF STUDY: 07/21/[address]: Umer Jimenez NP 2-DIMENSIONAL: YES M.MODE: YES DOPPLER: YES COLOR FLOW: YES TDS: PORTABLE: YES DEFINITY: BUBBLE STUDY: DIAGNOSIS: CONGESTIVE HEART FAILURE CARDIAC HISTORY: CATHERIZATION: NO SURGERY: NO PROSTHETIC VALVE: NO PACEMAKER: NO MEASUREMENTS (cm) DIASTOLIC (NORMALS) SYSTOLIC (NORMALS) IVSd 1.1 (0.6-1.2) LA Diam 3.1 (1.9-4.0) LVEF 60-65% LVIDd 5.0 (3.5-5.7) LVIDs 3.3 (2.0-3.5) %FS 35% LVPWd 1.2 (0.6-1.2) Ao Diam 2.5 (2.0-3.7) 2 DIMENSIONAL ASSESSMENT: RIGHT ATRIUM: NORMAL LEFT ATRIUM: NORMAL RIGHT VENTRICLE: NORMAL LEFT VENTRICLE: NORMAL TRICUSPID VALVE: TRACE TRICUSPID REGURGITATION MITRAL VALVE: NORMAL PULMONIC VALVE: NORMAL AORTIC VALVE: NORMAL PERICARDIAL EFFUSION: NONE AORTIC ROOT: NORMAL LEFT VENTRICULAR WALL MOTION: NORMAL DOPPLER/COLOR FLOW: GRADE I DIASTOLIC DYSFUNCTION COMMENTS: 1. NORMAL LEFT VENTRICULAR SYSTOLIC FUNCTION, EJECTION FRACTION 60-65%, NORMAL WALL MOTION 2. GRADE I DIASTOLIC DYSFUNCTION 3. MILD ELEVATED FILLING PRESSURE (RIGHT ATRIAL PRESSURE 5-10 mmHg) TECHNOLOGIST: LEONILA FIGUEREDO
[2024-07-21] MEDS: carvediloL 6.25 MG TAB PO SCH (17:13)
--- NOTE | 2024-07-21 20:31 | RAD REPORT ---
EXAMINATION: US RETROPERITONEUM CLINICAL INDICATION: [facility] MAIN pillo ckd TECHNIQUE: Real-time ultrasonography of the abdomen was performed. COMPARISON: CT abdomen and pelvis 07/19/2024 FINDINGS: RIGHT KIDNEY: Right renal length measurement: 10.2 cm. Normal in echogenicity and size. No calculus, solid mass or hydronephrosis. LEFT KIDNEY: Left renal length measurement: 10.0 cm. Normal in echogenicity and size. No calculus, so lid mass or hydronephrosis. URINARY BLADDER: Normal. ADDITIONAL FINDINGS: None. IMPRESSION: No acute or significant abnormalities.
[2024-07-22 01:54] LABS: Specific Gravity 1.012 (1.005-1.030); Sqamous Epithelial None Seen /HPF (None Seen); Urine Bacteria None Seen /HPF (<20); Urine Bilirubin NEGATIVE (Negative); Urine Blood 1+ (Negative); Urine Clarity Clear (Clear); Urine Color Light-Yellow (Yellow); Urine Glucose 3+ (Negative); Urine Ketones NEGATIVE (Negative); Urine Micro Reflex YN NO BILL MICROSCOPIC; Urine Mucus Slight /HPF (None Seen); Urine Nitrite NEGATIVE (Negative); Urine Protein 3+ (Negative); Urine RBC <5 /HPF (None Seen); Urine Urobilinogen Normal (Normal); Urine WBC <5 /HPF (<5); Urine pH 7.5 (5.0-7.0)
[2024-07-22 03:01] LABS: MA/CREAT RATIO 7973.7 (< 30.0)
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
[2024-07-22 06:10] LABS: Absolute Basophils 0.1 K/uL (0-0.5); Absolute Eosinophils 0.5 K/uL (0-0.5); Absolute Lymphocytes (CBC) 1.9 K/uL (0.7-4.9); Absolute Monocytes 0.7 K/uL (0.1-1.3); Absolute Neutrophil 3.9 K/uL (1.8-8.0); Basophils % 1.2 % (0-1.3); Eosinophils % 7.4 % (0-4.4); Hematocrit 31.8 % (39.6-49.0); Hemoglobin 11.2 g/dL (13.6-17.9); Lymphocytes % 26.9 % (15.3-44.8); MCH 30.5 pg (27.0-35.0); MCHC 35.2 g/dL (32.0-36.0); MCV 86.7 fL (80-100); MPV 7.3 fL (7.6-11.3); Monocytes % 9.3 % (3.3-12.3); Neutrophils % 55.2 % (41.7-73.7); Nucleated Red Blood Cells % 0.1 % (0-0); Platelets 230 thou/uL (152-406); RBC Red Blood Cell Count 3.67 M/uL (4.33-5.43); Red Cell Distribution Width 14.3 % (12.1-15.2)
[2024-07-22 06:31] LABS: Albumin 1.4 g/dL (3.4-5.0); Albumin/Globulin Ratio 0.4 (1.1-1.8); Anion Gap 7.8 mEq/L (5.0-15.0); Bilirubin Total 0.3 mg/dL (0.2-1.0); Globulin 3.8 g/dL (2.3-3.5); Phosphorus 3.4 mg/dL (2.5-4.9); Potassium 4.8 mEq/L (3.5-5.1); Protein, Total 5.2 g/dL (6.4-8.2)
[2024-07-22] MEDS: INSULIN GLARGINE 100 UNIT/ML SQ SCH (09:00)
--- NOTE | 2024-07-22 10:50 | P.PN ---
Subjective Date of Service: 07/22/24 Chief Complaint: Heart failure Subjective: No new changes, No C/O voiced, Tolerating diet, Ambulating, Improving Review of Systems 10-point ROS is otherwise unremarkable Physical Examination - Vital Signs Temperature: 97.7 F Blood Pressure: 182/86 Pulse: 82 Respirations: 20 Pulse Ox (%): 99 - Physical Exam General: Alert, In no apparent distress HEENT: Atraumatic, PERRLA, EOMI Neck: Supple, JVD not distended Respiratory: Clear to auscultation bilaterally, Normal air movement Cardiovascular: Regular rate/rhythm, Normal S1 S2 Gastrointestinal: Normal bowel sounds, No tenderness Musculoskeletal: No tenderness Integumentary: No rashes Neurological: Normal speech, Normal tone, Normal affect Lymphatics: No axilla or inguinal lymphadenopathy - Studies Medications List Reviewed: Yes Assessment And Plan - Current Problems (Diagnosis) (1) Chest pain Current Visit: Yes Status: Acute Plan: Patient troponin negative x 3 Echo shows normal EF and levin motion outpatient follow up with cardiology for possible stress test. (2) Heart failure Current Visit: Yes Status: Acute Plan: diastolic in nature continue Coreg 6.25 mg po BID agree with Aldactone 25 mg daily increase lasix to 40 mg IV TID consider adding Entresto once kidney function stabilizes. also patient will benefit from Jardiance 25 mg po daily continue to monitor input and output and electrolytes. Qualifiers: Heart failure type: unspecified (3) PAD (peripheral artery disease) Current Visit: No Status: Acute Plan: ASA 81 mg daily Lipitor 40 mg daily outpatient follow up with cardiology for ELLIS
--- NOTE | 2024-07-22 12:38 | PN ---
Date of Progress Note: 07/22/2024 Subjective: The patient was admitted to the hospital with anasarca, acute kidney injury on chronic kidney disease. The patient was found to have nephrotic range proteinuria. The patient had cirrhosis secondary to hepatitis C and congestive heart failure. Physical Examination: Vital Signs: When I saw the patient, blood pressure 182/86, pulse of 82, afebrile. The patient had good urine output of 1300. The patient is negative of 1 L. Chest: Clear to auscultation. Heart: S1, S2. Systolic murmur. Abdomen: Soft, nontender. Extremities: Plus edema. Neurologic: Alert. No focality. Laboratory Data: WBC 7.1, hemoglobin 11.2. Sodium 137, potassium 4.8, bicarb 29, BUN 35, creatinine 1.9, calcium 7.5. BNP 3100. PC ratio 7.9 g. Reviewing the record for the patient, the patient had nephrotic range proteinuria. Before workup showed M spike, but immunofixation was negative. The patient's baseline creatinine back in August 2020 was 1.6. Assessment And Plan: 1. Acute kidney injury on chronic kidney disease. Normal-sized kidney with nephrotic range proteinuria, mostly progression of the disease. Over volume. No respiratory symptoms. I am going to go ahead and increase his Lasix to t.i.d. to optimize the fluid status for the patient and we will follow up. 2. 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 Workup was negative. I am going to consider adding ANI inhibitor as outpatient with Kerendia. 3. Hypertension, not controlled. We will utilize blood pressure for more diuresis, increasing the Lasix and I am going to add Aldactone to the patient. We will follow up. 4. Cirrhosis as by Primary. 5. Scrotal swelling secondary to nephrotic range proteinuria, over volume. We will continue diuresis as above. Time spent examining the patient [id number] reviewing that the lab and the radiology placing order discussing the case with the patient discussing the case with the contact center team lead including hospitalist and nursing staff more than 55 minutes QUINCY Voice ID: [id number] Report ID: [id number] ALEN
[2024-07-22] MEDS: FUROSEMIDE 40 MG/4 ML VIAL IV SCH (13:59)
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
[2024-07-22] MEDS: carvediloL 12.5 MG TAB PO SCH (20:40)
[2024-07-23 01:35] VITALS: O2SAT 100
[2024-07-23 06:14] VITALS: TEMP 98.2
[2024-07-23 06:25] VITALS: BMI 27.2
[2024-07-23] MEDS: SPIRONOLACTONE 25 MG TABLET PO SCH (10:00)
--- NOTE | 2024-07-23 11:12 | P.PN ---
Subjective Date of Service: 07/23/24 Chief Complaint: Heart failure Subjective: No new changes, No C/O voiced, Tolerating diet, Ambulating, Improving Review of Systems 10-point ROS is otherwise unremarkable Physical Examination - Vital Signs Temperature: 98.2 F Blood Pressure: 128/70 Pulse: 74 Respirations: 18 Pulse Ox (%): 97 - Physical Exam General: Alert, In no apparent distress HEENT: Atraumatic, PERRLA, EOMI Neck: Supple, JVD not distended Respiratory: Clear to auscultation bilaterally, Normal air movement Cardiovascular: Regular rate/rhythm, Normal S1 S2 Gastrointestinal: Normal bowel sounds, No tenderness Musculoskeletal: No tenderness Integumentary: No rashes Neurological: Normal speech, Normal tone, Normal affect Lymphatics: No axilla or inguinal lymphadenopathy - Studies Medications List Reviewed: Yes Assessment And Plan - Current Problems (Diagnosis) (1) Chest pain Current Visit: Yes Status: Acute Plan: Patient troponin negative x 3 Echo shows normal EF and levin motion outpatient follow up with cardiology for possible stress test. (2) Heart failure Current Visit: Yes Status: Acute Plan: diastolic in nature continue Coreg 12.5 mg po BID agree with Aldactone 25 mg daily continue lasix 40 mg IV TID for one more day then switch to 40 mg po BID on discharge consider adding Entresto once kidney function stabilizes. also patient will benefit from Jardiance 25 mg po daily continue to monitor input and output and electrolytes. Qualifiers: Heart failure type: unspecified (3) PAD (peripheral artery disease) Current Visit: No Status: Acute Plan: ASA 81 mg daily Lipitor 40 mg daily outpatient follow up with cardiology for ELLIS
[2024-07-23 12:43] VITALS: BP 145/79
--- NOTE | 2024-07-23 15:53 | PN ---
Date of Progress Note: 07/23/2024 Subjective: The patient was admitted to the hospital with anasarca secondary to cardiorenal, cirrhos is, hepatorenal. Patient had been diuresed aggressively. The patient responding very well. Physical Examination: Vital Signs: Blood pressure 128/70, pulse of 74, afebrile. The patient had good urine output of 2 L , as weight melendrez, the patient's weight has dropped from 192 to 174 since admission with loss around 1 8 pounds. Chest: Clear to auscultation. Heart: S1, S2. Systolic murmur. Abdomen: Ascites. Extremities: +1 edema. Neurologic: Alert. No focality. Laboratory Data: Today's labs pending. Yesterday, hemoglobin 11.2, sodium 137, potassium 4.8, bicar b 29, BUN 35, creatinine 1.9, trending down, GFR 38, calcium 7.5, phosphorus 3.4, albumin 1.4, correc chase calcium is 9.5. Current Medications: The patient on it include include heparin, carvedilol 12.5 b.i.d., spironolacto ne was added yesterday, Lasix 40 b.i.d., Zofran. Assessment And Plan: 1. Acute kidney injury secondary to hepatorenal/cardiorenal with nephrotic range of proteinuria on ad vanced chronic kidney disease, responding very well to diuresis. I am going to go ahead and switch h is diuresis to oral. Continue spironolactone and we will follow up the patient. 2. Nephrotic range of proteinuria secondary to his diabetes nephropathy. We will monitor the patient. We will consider ANI inhibitor or ARB as outpatient after stabilizing the kidney functi on. 3. Anasarca secondary to cardiorenal, responding very well to current diuresis. We will change Lasix to oral. 4. Cirrhosis secondary to hepatitis C, as by Primary. 5. Congestive heart failure with exacerbation. Ejection fraction on this admission is 65, diastolic dysfunction grade 1. We will continue diuresis as above. We will follow up with Cardiology. SHAYLEE/RANDALL Voice ID: [id number] Report ID: [id number]
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
[2024-07-23] MEDS ORDERED: FUROSEMIDE 40 MG TABLET PO SCH (21:00)
[2024-07-24 18:23] LABS: Hepatitis C Virus RNA (PCR)log 7.51 log IU/mL
== END 2024-07-23 13:36 | disposition home or self-care (01) | DRG 291 ==
LOC: ER 04:23 → ERHOLD 09:46 → 2ND 13:21
PROVIDERS: ADMIT Hospitalist; ATTEND Internal Medicine
DX: I13.0 Hypertensive heart and chronic kidney disease with heart failure and stage 1 through stage 4 chronic kidney disease, or unspecified chronic kidney disease (principal); I50.33 Acute on chronic diastolic (congestive) heart failure; N17.9 Acute kidney failure, unspecified; R18.8 Other ascites; N18.30 Chronic kidney disease, stage 3 unspecified; E11.22 Type 2 diabetes mellitus with diabetic chronic kidney disease; E11.51 Type 2 diabetes mellitus with diabetic peripheral angiopathy without gangrene; D63.1 Anemia in chronic kidney disease; D50.9 Iron deficiency anemia, unspecified; E83.51 Hypocalcemia; K76.0 Fatty (change of) liver, not elsewhere classified; N50.89 Other specified disorders of the male genital organs; E88.09 Other disorders of plasma-protein metabolism, not elsewhere classified; K80.20 Calculus of gallbladder without cholecystitis without obstruction; E03.9 Hypothyroidism, unspecified; K74.60 Unspecified cirrhosis of liver; B19.20 Unspecified viral hepatitis C without hepatic coma; R74.01 Elevation of levels of liver transaminase levels; Z93.3 Colostomy status; Z88.5 Allergy status to narcotic agent; Z79.4 Long term (current) use of insulin; Z79.02 Long term (current) use of antithrombotics/antiplatelets; Z79.890 Hormone replacement therapy; Z89.421 Acquired absence of other right toe(s); Z79.899 Other long term (current) drug therapy
CPT/HCPCS: 36415; 71045; 74176; 76770; 76870; 80048; 80053; 80061; 80076; 81001; 82043; 82550; 82570; 82947; 83036; 83735; 83880; 84100; 84134; 84156; 84439; 84443; 84484; 85025; 85610; 86335; 87522; 93005; 93306; 96374; 96375; 99285; J0360; J0612; J1644; J1815; J1938; P9047

== ENCOUNTER 2024-08-11 14:04 | Emergency (ER) | payer OTHER ==
[2024-08-11] MEDS ORDERED: ONDANSETRON 4 MG/2 ML VIAL ONE (15:05)
[2024-08-11 15:07] LABS: Absolute Basophils 0.1 K/uL (0-0.5); Absolute Eosinophils 0.3 K/uL (0-0.5); Absolute Monocytes 0.6 K/uL (0.1-1.3); Absolute Neutrophil 4.7 K/uL (1.8-8.0); Basophils % 1.1 % (0-1.3); Eosinophils % 4.5 % (0-4.4); Hematocrit 35.6 % (39.6-49.0); Hemoglobin 12.5 g/dL (13.6-17.9); MCH 30.6 pg (27.0-35.0); MCV 87.3 fL (80-100); MPV 7.9 fL (7.6-11.3); Monocytes % 7.7 % (3.3-12.3); Neutrophils % 60.7 % (41.7-73.7); Nucleated Red Blood Cells % 0.1 % (0-0); Platelets 174 thou/uL (152-406); RBC Red Blood Cell Count 4.07 M/uL (4.33-5.43); Red Cell Distribution Width 14.3 % (12.1-15.2)
[2024-08-11 15:12] LABS: Protime INR 0.96
--- NOTE | 2024-08-11 15:14 | RAD REPORT ---
EXAM: Chest Single View HISTORY: 58 years Male DYSPNEA COMPARISON: 07/19/2024 FINDINGS: LUNGS/PLEURA: The lungs are clear. No pleural effusions or pneumothorax. No pulmonary edema. CARDIAC/MEDIASTINUM: The cardiac silhouette is within normal limits. UPPER ABDOMEN: No significant abnormality. BONES: No acute abnormality. LINES/TUBES/OTHER: Shrapnel overlies the right upper chest wall. IMPRESSION: No evidence of acute cardiopulmonary disease. No significant change from prior.
[2024-08-11 15:30] LABS: ALT/SGPT 185 U/L (16-61); AST/SGOT 165 U/L (15-37); Albumin 1.7 g/dL (3.4-5.0); Albumin/Globulin Ratio 0.4 (1.1-1.8); Alkaline Phosphatase 242 U/L (45-117); Anion Gap 10.1 mEq/L (5.0-15.0); BUN Blood Urea Nitrogen 53 mg/dL (7-18); Bicarbonate 28 mEq/L (21-32); Bilirubin Total 0.4 mg/dL (0.2-1.0); Glomerular Filtration Rate 27 ml/min (=/>90); NT PRO-BNP 624 pg/mL (<125); Potassium 5.1 mEq/L (3.5-5.1); Protein, Total 5.7 g/dL (6.4-8.2); Sodium Level 132 mEq/L (136-145); Troponin High Sensitivity 10.1 pg/mL (<58.9)
[2024-08-11 15:33] LABS: Bilirubin Direct < 0.2 mg/dL (0-0.2); Bilirubin Indirect, Calculated 0.2 mg/dL (0.2-0.8)
[2024-08-11 15:42] LABS: Glucose Level 417 mg/dL (74-106)
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
[2024-08-11 17:29] VITALS: BP 105/60; TEMP 98.1; O2SAT 99
== END 2024-08-11 17:03 | disposition home or self-care (01) ==
LOC: ER 14:04
DX: R79.89 Other specified abnormal findings of blood chemistry (principal); E11.22 Type 2 diabetes mellitus with diabetic chronic kidney disease; N18.9 Chronic kidney disease, unspecified; D63.1 Anemia in chronic kidney disease
CPT/HCPCS: 93005; 85025; 80048; 36415; 85610; 80076; 84484; 83880; 71045; 99284; J2405

== ENCOUNTER 2024-08-14 20:45 | Emergency (ER) | payer OTHER ==
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
[2024-08-14 22:33] LABS: Absolute Basophils 0.1 K/uL (0-0.5); Absolute Eosinophils 0.4 K/uL (0-0.5); Absolute Lymphocytes (CBC) 2.4 K/uL (0.7-4.9); Absolute Monocytes 0.7 K/uL (0.1-1.3); Absolute Neutrophil 5.3 K/uL (1.8-8.0); Basophils % 0.9 % (0-1.3); Eosinophils % 4.4 % (0-4.4); Hematocrit 34.6 % (39.6-49.0); Hemoglobin 12.3 g/dL (13.6-17.9); Lymphocytes % 27.2 % (15.3-44.8); MCH 30.4 pg (27.0-35.0); MCHC 35.4 g/dL (32.0-36.0); MCV 85.8 fL (80-100); MPV 7.7 fL (7.6-11.3); Monocytes % 7.5 % (3.3-12.3); Platelets 161 thou/uL (152-406); RBC Red Blood Cell Count 4.04 M/uL (4.33-5.43); Red Cell Distribution Width 13.9 % (12.1-15.2)
[2024-08-14 23:42] LABS: ALT/SGPT 155 U/L (16-61); AST/SGOT 110 U/L (15-37); Albumin 1.6 g/dL (3.4-5.0); Albumin/Globulin Ratio 0.4 (1.1-1.8); Alkaline Phosphatase 223 U/L (45-117); BUN Blood Urea Nitrogen 43 mg/dL (7-18); Bicarbonate 27 mEq/L (21-32); Bilirubin Total 0.3 mg/dL (0.2-1.0); Globulin 3.7 g/dL (2.3-3.5); Glomerular Filtration Rate 35 ml/min (=/>90); Glucose Level 303 mg/dL (74-106); Magnesium 2.3 mg/dL (1.6-2.4); Protein, Total 5.3 g/dL (6.4-8.2); Sodium Level 134 mEq/L (136-145); Troponin High Sensitivity 12.6 pg/mL (<58.9)
[2024-08-14 23:46] LABS: Bilirubin Direct < 0.2 mg/dL (0-0.2); Bilirubin Indirect, Calculated 0.1 mg/dL (0.2-0.8)
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
[2024-08-15 01:59] VITALS: TEMP 98.2
[2024-08-15 02:01] VITALS: BP 152/84; O2SAT 98
--- NOTE | 2024-08-19 12:33 | EKG ---
Test Date: 2024-08-14 Test Time: 22:02:24 Recorder Helper Seismograph: YAMILA MEASUREMENT RESULTS: Intervals: Rate: 71 [place]: 150 QRSD: 90 QT: 390 QTc: 423 [place]: P: 66 W[place]: 150 QRS: 23 T: 76 INTERPRETIVE STATEMENTS: Normal sinus rhythm Normal ECG Compared to ECG 08/11/2024 15:10:47 No significant changes Electronically Signed On 08-19-24 12:25:09 CDT by Parvez Rivera
== END 2024-08-15 01:33 | disposition home or self-care (01) ==
LOC: ER 20:45
DX: R55 Syncope and collapse (principal); E11.22 Type 2 diabetes mellitus with diabetic chronic kidney disease; N18.9 Chronic kidney disease, unspecified; I50.9 Heart failure, unspecified; Z79.4 Long term (current) use of insulin
CPT/HCPCS: 36415; 71045; 80048; 80076; 83735; 84484; 85025; 93005; 96360; 96361; 99284

== ENCOUNTER 2024-11-20 17:04 | Emergency (ER) | payer OTHER ==
[2024-11-20 17:50] LABS: Absolute Lymphocytes (CBC) 2.5 K/uL (0.7-4.9); Hematocrit 32.5 % (39.6-49.0); Hemoglobin 11.2 g/dL (13.6-17.9); MCH 29.4 pg (27.0-35.0); MCHC 34.4 g/dL (32.0-36.0); MCV 85.5 fL (80-100); MPV 7.5 fL (7.6-11.3); Nucleated RBC Absolute Count 0.0 (0-0); Nucleated Red Blood Cells % 0.0 % (0-0); RBC Red Blood Cell Count 3.80 M/uL (4.33-5.43); White Blood Count 8.40 thou/uL (4.3-10.9)
[2024-11-20 17:52] LABS: PT Prothrombin Time 11.0 SECONDS (10-13.0); Protime INR 0.97
[2024-11-20 18:11] LABS: ALT/SGPT 92 U/L (16-61); AST/SGOT 106 U/L (15-37); Albumin 1.5 g/dL (3.4-5.0); Albumin/Globulin Ratio 0.4 (1.1-1.8); Alkaline Phosphatase 184 U/L (45-117); Anion Gap 10.4 mEq/L (5.0-15.0); BUN Blood Urea Nitrogen 60 mg/dL (7-18); Bilirubin Indirect, Calculated 0.1 mg/dL (0.2-0.8); Globulin 3.7 g/dL (2.3-3.5); Glucose Level 94 mg/dL (74-106); Magnesium 2.4 mg/dL (1.6-2.4); NT PRO-BNP 1345 pg/mL (<125); Potassium 4.4 mEq/L (3.5-5.1); Troponin High Sensitivity 18.3 pg/mL (<58.9)
--- NOTE | 2024-11-20 18:46 | RAD REPORT ---
EXAMINATION: ONE VIEW CHEST XR CLINICAL INDICATION: Male, 59 years old.,SOB TECHNIQUE: Frontal chest projection is submitted. Examination is limited by patient positioning and t echnique. COMPARISON: 08/14/2024 FINDINGS: The lungs are well inflated and clear. No pneumothorax or sizable effusion. The heart is normal in s ize. Mediastinal contours are unremarkable. Numerous metallic radiodensities along the right upper chest, stable. IMPRESSION: No acute intrathoracic abnormalities.
[2024-11-20] MEDS ORDERED: FUROSEMIDE 40 MG/4 ML VIAL ONE (18:55)
--- NOTE | 2024-11-20 19:13 | RAD REPORT ---
EXAM: CT Head Brain Wo Cont HISTORY: HEADACHE COMPARISON: None TECHNIQUE: Multiple contiguous axial images were obtained for a CT of the brain without contrast. Sag ittal and coronal reformats were performed. One or more of the following dose reduction techniques were used: Automated exposure control, adjus tment of the mA and kV according to patient size, and iterative reconstruction. Unless otherwise specified, incidental findings do not require dedicated imaging follow-up. FINDINGS: No evidence of hydrocephalus, intracranial hemorrhage, or extra-axial fluid collection. Mild brain atrophy with mild periventricular and deep white matter chronic microvascular ischemic ch anges present. The calvarium is intact. The visualized paranasal sinuses show mild mucosal thickening along the maxi llary sinus on the right with osseous wall thickening suggesting sequelae of chronic sinusitis. Mastoid air cells are essentially clear. IMPRESSION: No evidence of acute intracranial abnormality.
--- NOTE | 2024-11-20 20:49 | RAD REPORT ---
EXAMINATION: US Extrem Venous W Compress Mohan CLINICAL INDICATION: [facility] MAIN Pain;Swelling Bed Name: 17 N TECHNIQUE: Complete bilateral duplex sonography of the BILATERAL lower extremity veins was performed. The examination included compression for vein patency, color Doppler imaging and flow augmentation in response to distal compression of the distal external iliac, common femoral, femoral, popliteal, t ibial, and great and small saphenous veins. COMPARISON: No prior exam. FINDINGS: Duplex sonography testing of the veins of the BILATERAL lower extremity was performed. Color flow sammy ging shows all veins to be compressible with [id number] color filling. Pulsatile and phasic flow is present within all lower extremity deep and superficial veins examined. IMPRESSION: There is no deep vein or superficial vein thrombosis.
--- NOTE | 2024-11-20 20:50 | RAD REPORT ---
EXAMINATION: US Lower Extremity Arterial Bilat CLINICAL INDICATION: Male, 59 years old. [facility] MAIN Swelling;Pain Bed Name: 17 TECHNIQUE: Arterial duplex ultrasound of the bilateral lower extremities, with real-time, duplex, and spectral flow Doppler evaluation. COMPARISON: No prior exam. FINDINGS: Brachial artery systolic pressure is symmetric bilaterally. Grayscale: Grayscale: Mild to moderate plaque. Right lower extremity: The common femoral through dorsalis pedis arteries are patent, with triphasic waveforms. Left lower extremity: The common femoral through dorsalis pedis arteries are patent, with triphasic waveforms. Impression IMPRESSION: No significant peripheral vascular disease.
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
[2024-11-21 02:11] VITALS: TEMP 98.3
[2024-11-21 02:14] VITALS: O2SAT 100
[2024-11-21 02:16] VITALS: BP 154/77
== END 2024-11-20 22:11 | disposition home or self-care (01) ==
LOC: ER 17:04
DX: R60.9 Edema, unspecified (principal); R06.02 Shortness of breath; I50.40 Unspecified combined systolic (congestive) and diastolic (congestive) heart failure
CPT/HCPCS: 93005; 85025; 80048; 36415; 83735; 85610; 80076; 84484; 83880; 70450; 71045; 93925; 93970; 96374; 99285; J1938